=== PATIENT | female | born 1995 | race Caucasian/White ===

== ENCOUNTER 2017-01-24 23:01 | Day surgery (SDC) | payer BC ==
[2017-01-24] MEDS ORDERED: Sodium Chloride 0.9% 2.5 ML Syringe FLUSH PRN (23:36)
[2017-01-24] MEDS ORDERED: Sodium Chloride 0.9% 10 ML Syringe FLUSH PRN (23:36)
--- NOTE | 2017-01-24 23:39 | EDM.PDOC ---
ED HPI GENERAL MEDICAL PROBLEM - General Chief Complaint: Abdominal Pain Stated Complaint: ABDOMINAL PAIN Time Seen by Provider: 01/24/17 23:13 Source of Information: Reports: Patient History Limitations: Reports: No Limitations - History of Present Illness INITIAL COMMENTS - FREE TEXT/NARRATIVE: HISTORY AND PHYSICAL: History of present illness: [21-year-old female with no significant past medical history denies possibility of now complaining of 5 hour history of gradual onset of abdominal pain. She has no vaginal discharge or bleeding. It does hurt to move and when they hit bumps in the car that was painful. Pain is worse right lower quadrant. No vomiting or diarrhea. No fevers chills sweats or shaking chills. Patient has never had abdominal surgery and has no history of kidney stones] Review of systems: As per history of present illness and below otherwise all systems reviewed and negative. Past medical history: As per history of present illness and as reviewed below otherwise noncontributory. Surgical history: As per history of present illness and as reviewed below otherwise noncontributory. Social history: No reported history of drug or alcohol abuse. Family history: As per history of present illness and as reviewed below otherwise noncontributory. Physical exam: Well-appearing patient no acute distress clear lungs regular rhythm supple neck diffuse mild abdominal tenderness with focal tenderness right lower quadrant. Nondistended no mass or megaly no skin changes HEENT: Atraumatic, normocephalic, pupils reactive, negative for conjunctival pallor or scleral icterus, mucous membranes moist, throat clear, neck supple, nontender, trachea midline. Lungs: Clear to auscultation, breath sounds equal bilaterally, chest nontender. Heart: S1S2, regular, negative for clicks, rubs, or JVD. Abdomen: Soft, nondistended, nontender. Negative for masses or hepatosplenomegaly. Negative for costovertebral tenderness. Pelvis: Stable nontender. Genitourinary: Deferred. Rectal: Deferred. Extremities: Atraumatic, negative for cords or calf pain. Neurovascular unremarkable. Neuro: Awake, alert, oriented. Cranial nerves grossly unremarkable. Neuro unremarkable throughout. Exam nonfocal. Diagnostics: [CT with dilated appendix with questionable periappendiceal changes and stranding] Therapeutics: [IV fluids and analgesia] Impression: [] Plan: [Signs and symptoms consistent with intra-abdominal infection versus evolving enteritis. Labs with mildly elevated white blood cell count 11.19. Patient was tachycardic at 116. IV fluids initiated. status is negative. CTA returns with suspicion of appendicitis however results were not definitive. On clinical reevaluation patient clearly very tender at McBurney's point. Case discussed with Dr. Adeola zazueta surgery preparation operator. She is aware of history and findings and agrees with observation admission to her service for continued evaluation and surgical treatment.] Patient will be kept nothing by mouth. Dr. Trujillo requests Zosyn dosing IV. Definitive disposition and diagnosis as appropriate pending reevaluation and review of above. Bilateral Flank Pain Score (Numeric/FACES): 8 - Related Data Allergies Allergy/AdvReac Type Severity Reaction Status Date / Time erythromycin base Allergy Severe Rash Verified 01/24/17 23:16 [Erythromycin Base] azithromycin Allergy Rash Verified 01/24/17 23:16 codeine AdvReac Rash Verified 01/24/17 23:16 Home Meds: Home Meds . [No Known Home Meds] 12/23/13 [History] Past Medical History - Past Health History Medical/Surgical History: Denies Medical/Surgical History Social & Family History - Family History Family Medical History: Noncontributory - Tobacco Use Smoking Status *Q: Current Every Day Smoker Years of Tobacco use: 2 Packs/Tins Daily: 0.5 Second Hand Smoke Exposure: Yes - Caffeine Use Caffeine Use: Reports: Soda - Recreational Drug Use Recreational Drug Use: No ED ROS GENERAL - Review of Systems Review Of Systems: See Below (History of present illness) ED EXAM, GI/ABD - Physical Exam Exam: See Below (history of present illness) Course - Vital Signs Last Recorded V/S: Last Vital Signs Temp 36.5 C 01/25/17 01:25 Pulse 88 01/25/17 01:25 Resp 16 01/25/17 01:25 BP 113/72 01/25/17 01:25 Pulse Ox 98 01/25/17 01:25 - Orders/Labs/Meds Orders: Active Orders 24 hr Category Date Time Status Admission Status [Patient Status] [ADT] Stat ADT 01/25/17 01:50 Active Abdomen Pelvis w Cont [CT] Stat Exams 01/24/17 23:36 Taken Piperacillin/Tazobactam [Piperacil-Tazobact] 4.5 gm Med 01/25/17 01:51 Active Sodium Chloride 0.9% [Normal Saline] 100 ml IV ONETIME Sodium Chloride 0.9% [Normal Saline] 1,000 ml Med 01/25/17 01:44 Active IV STAT Sodium Chloride 0.9% [Normal Saline] 1,000 ml Med 01/25/17 01:44 Active IV STAT Peripheral IV Insertion Adult [OM.PC] Stat Oth 01/24/17 23:36 Ordered Medication Orders Sodium Chloride (Normal Saline) 1,000 mls @ 999 mls/hr IV STAT ONE Stop: 01/25/17 02:44 Last Admin: 01/25/17 01:50 Dose: 999 mls/hr Sodium Chloride (Normal Saline) 1,000 mls @ 999 mls/hr IV STAT ONE Stop: 01/25/17 02:44 Piperacillin Sod/Tazobactam (Sod 4.5 gm/ Sodium Chloride) 100 mls @ 100 mls/hr IV ONETIME ONE Stop: 01/25/17 02:50 Labs: Laboratory Tests 01/24/17 01/24/17 01/24/17 Range/Units 23:17 23:17 23:46 WBC 11.19 H (4.0-11.0) K/uL RBC 4.44 (4.30-5.90) M/uL Hgb 12.9 (12.0-16.0) g/dL Hct 37.8 (36.0-46.0) % MCV 85.1 (80.0-98.0) fL MCH 29.1 (27.0-32.0) pg MCHC 34.1 (31.0-37.0) g/dL RDW Std Deviation 41.3 (28.0-62.0) fl RDW Coeff of Wendy 13 (11.0-15.0) % Plt Count 275 (150-400) K/uL MPV 10.00 (7.40-12.00) fL Neut % (Auto) 54.9 (48.0-80.0) % Lymph % (Auto) 34.2 (16.0-40.0) % [place] % (Auto) 10.0 (0.0-15.0) % Eos % (Auto) 0.7 (0.0-7.0) % Baso % (Auto) 0.2 (0.0-1.5) % Neut # (Auto) 6.1 H (1.4-5.7) K/uL Lymph # (Auto) 3.8 H (0.6-2.4) K/uL [place] # (Auto) 1.1 H (0.0-0.8) K/uL Eos # (Auto) 0.1 (0.0-0.7) K/uL Baso # (Auto) 0.0 (0.0-0.1) K/uL Nucleated RBC % 0.0 /100WBC Nucleated RBCs # 0 K/uL Sodium (136-146) mmol/L Potassium (3.5-5.1) mmol/L Chloride (98-110) mmol/L Carbon Dioxide (21-31) mmol/L BUN (6.0-23.0) mg/dL Creatinine (0.6-1.5) mg/dL Est Cr Clr Drug Dosing mL/min Estimated GFR (MDRD) ml/min Glucose (60-110) mg/dL Calcium (8.8-10.8) mg/dL Total Bilirubin (0.1-1.5) mg/dL AST (5-40) IU/L ALT (8-54) IU/L Alkaline Phosphatase (40-150) Total Protein (6.0-8.0) g/dL Albumin (3.5-5.0) g/dL Globulin (2.0-3.5) g/dL Albumin/Globulin Ratio (1.3-2.8) Lipase (7-80) U/L Urine Color YELLOW Urine Appearance CLEAR Urine pH 6.5 (5.0-8.0) Ur Specific [place] 1.025 (1.001-1.035) Urine Protein NEGATIVE (NEGATIVE) mg/dL Urine Glucose (UA) NEGATIVE (NEGATIVE) mg/dL Urine Ketones NEGATIVE (NEGATIVE) mg/dL Urine Occult Blood NEGATIVE (NEGATIVE) Urine Nitrite NEGATIVE (NEGATIVE) Urine Bilirubin NEGATIVE (NEGATIVE) Urine Urobilinogen 0.2 (<2.0) EU/dL Ur Leukocyte Esterase NEGATIVE (NEGATIVE) Urine RBC 0-1 (0-2/HPF) Urine WBC 0-3 (0-5/HPF) Ur Epithelial Cells OCCASIONAL (NONE-FEW) Urine Bacteria RARE (NEGATIVE) Urine HCG, Qual NEGATIVE (NEGATIVE) 01/24/17 Range/Units 23:46 WBC (4.0-11.0) K/uL RBC (4.30-5.90) M/uL Hgb (12.0-16.0) g/dL Hct (36.0-46.0) % MCV (80.0-98.0) fL MCH (27.0-32.0) pg MCHC (31.0-37.0) g/dL RDW Std Deviation (28.0-62.0) fl RDW Coeff of Wendy (11.0-15.0) % Plt Count (150-400) K/uL MPV (7.40-12.00) fL Neut % (Auto) (48.0-80.0) % Lymph % (Auto) (16.0-40.0) % [place] % (Auto) (0.0-15.0) % Eos % (Auto) (0.0-7.0) % Baso % (Auto) (0.0-1.5) % Neut # (Auto) (1.4-5.7) K/uL Lymph # (Auto) (0.6-2.4) K/uL [place] # (Auto) (0.0-0.8) K/uL Eos # (Auto) (0.0-0.7) K/uL Baso # (Auto) (0.0-0.1) K/uL Nucleated RBC % /100WBC Nucleated RBCs # K/uL Sodium 140 (136-146) mmol/L Potassium 4.0 (3.5-5.1) mmol/L Chloride 108 (98-110) mmol/L Carbon Dioxide 24 (21-31) mmol/L BUN 5 L (6.0-23.0) mg/dL Creatinine 0.7 (0.6-1.5) mg/dL Est Cr Clr Drug Dosing 111.62 mL/min Estimated GFR (MDRD) > 60.0 ml/min Glucose 125 H (60-110) mg/dL Calcium 9.2 (8.8-10.8) mg/dL Total Bilirubin 0.2 (0.1-1.5) mg/dL AST 25 (5-40) IU/L ALT 21 (8-54) IU/L Alkaline Phosphatase 92 (40-150) Total Protein 6.6 (6.0-8.0) g/dL Albumin 3.7 (3.5-5.0) g/dL Globulin 2.9 (2.0-3.5) g/dL Albumin/Globulin Ratio 1.3 (1.3-2.8) Lipase 12 (7-80) U/L Urine Color Urine Appearance Urine pH (5.0-8.0) Ur Specific [place] (1.001-1.035) Urine Protein (NEGATIVE) mg/dL Urine Glucose (UA) (NEGATIVE) mg/dL Urine Ketones (NEGATIVE) mg/dL Urine Occult Blood (NEGATIVE) Urine Nitrite (NEGATIVE) Urine Bilirubin (NEGATIVE) Urine Urobilinogen (<2.0) EU/dL Ur Leukocyte Esterase (NEGATIVE) Urine RBC (0-2/HPF) Urine WBC (0-5/HPF) Ur Epithelial Cells (NONE-FEW) Urine Bacteria (NEGATIVE) Urine HCG, Qual (NEGATIVE) Meds: Medications Generic Name Dose Route Start Last Admin Trade Name Freq PRN Reason Stop Dose Admin Sodium Chloride 1,000 mls @ 999 mls/hr 01/25/17 01:44 01/25/17 01:50 Normal Saline IV 01/25/17 02:44 999 mls/hr STAT ONE Administration Sodium Chloride 1,000 mls @ 999 mls/hr 01/25/17 01:44 Normal Saline IV 01/25/17 02:44 STAT ONE Piperacillin Sod/Tazobactam 100 mls @ 100 mls/hr 01/25/17 01:51 Sod 4.5 gm/ Sodium Chloride IV 01/25/17 02:50 ONETIME ONE Discontinued Medications Generic Name Dose Route Start Last Admin Trade Name Maria Eugenia PRN Reason Stop Dose Admin Iopamidol 100 ml 01/24/17 23:56 01/24/17 23:57 Isovue Multipack-370 (76%) IVPUSH 01/24/17 23:57 100 ml ONETIME STA Administration Sodium Chloride 10 ml 01/24/17 23:36 01/25/17 01:51 Saline Flush FLUSH 10 ml ASDIRECTED PRN Administration Keep Vein Open Sodium Chloride 2.5 ml 01/24/17 23:36 01/25/17 01:51 Saline Flush FLUSH 2.5 ml ASDIRECTED PRN Administration Keep Vein Open Departure - Departure Time of Disposition: 02:04 Disposition: Refer to Observation Condition: Good Clinical Impression: Acute appendicitis, Abdominal pain, Leukocytosis, Tachycardia - Discharge Information Referrals: Rossy Moore, [employer] [Primary Care Provider] - - My Orders Last 24 Hours: My Active Orders 01/24/17 23:36 Abdomen Pelvis w Cont [CT] Stat Peripheral IV Insertion Adult [OM.PC] Stat 01/25/17 01:44 Sodium Chloride 0.9% [Normal Saline] 1,000 ml IV STAT Sodium Chloride 0.9% [Normal Saline] 1,000 ml IV STAT 01/25/17 01:50 Admission Status [Patient Status] [ADT] Stat 01/25/17 01:51 Piperacillin/Tazobactam [Piperacil-Tazobact] 4.5 gm Sodium Chloride 0.9% [ Normal Saline] 100 ml IV ONETIME - Assessment/Plan Last 24 Hours: My Active Orders 01/24/17 23:36 Abdomen Pelvis w Cont [CT] Stat Peripheral IV Insertion Adult [OM.PC] Stat 01/25/17 01:44 Sodium Chloride 0.9% [Normal Saline] 1,000 ml IV STAT Sodium Chloride 0.9% [Normal Saline] 1,000 ml IV STAT 01/25/17 01:50 Admission Status [Patient Status] [ADT] Stat 01/25/17 01:51 Piperacillin/Tazobactam [Piperacil-Tazobact] 4.5 gm Sodium Chloride 0.9% [ Normal Saline] 100 ml IV ONETIME
[2017-01-24] MEDS ORDERED: Iopamidol 755 MG/ML 500 ML Multipack Bottle IVPUSH STA (23:56)
[2017-01-25 00:42] LABS: CHLORIDE,CL 108 mmol/L (98-110); SODIUM,NA 140 mmol/L (136-146)
[2017-01-25] MEDS ORDERED: Sodium Chloride 0.9% 1,000 ML IV ONE (01:44)
[2017-01-25] MEDS: Sodium Chloride 0.9% 1,000 ML IV ONE ×2 (01:50→02:46)
[2017-01-25] MEDS ORDERED: Piperacillin/Tazobactam 4.5 GM in Sodium Chloride 0.9% 100 ML IV ONE (01:51)
[2017-01-25] MEDS ORDERED: Lactated Ringers 1,000 ML IV SCH (02:15)
[2017-01-25] MEDS: HYDROmorphone 2 MG/ML Syringe IVPUSH PRN ×3 (03:04→17:14)
[2017-01-25] MEDS ORDERED: Bupivacaine 0.5% 30 ML SDV ONE (07:05)
[2017-01-25] MEDS ORDERED: fentaNYL 100 MCG/2 ML SDV ONE (07:15)
[2017-01-25] MEDS ORDERED: Midazolam 1 MG/ML 2 ML SDV ONE (07:15)
[2017-01-25] MEDS ORDERED: Propofol 200 MG/20 ML SDV ONE (07:15)
[2017-01-25] MEDS ORDERED: Dexamethasone 4 MG/ML 5 ML MDV ONE (07:17)
[2017-01-25] MEDS ORDERED: Ketorolac 30 MG/ML SDV ONE (07:17)
[2017-01-25] MEDS ORDERED: Neostigmine Methylsulfate 1 MG/ML 5 ML Syringe ONE (07:17)
[2017-01-25] MEDS ORDERED: Rocuronium 10 MG/ML 10 ML Syringe ONE (07:17)
[2017-01-25] MEDS ORDERED: Ondansetron 4 MG/2 ML SDV ONE (07:17)
--- NOTE | 2017-01-25 07:30 | PCM.PREANE ---
Preanesthetic Assessment - Anesthesia/Transfusion/Family Hx Anesthesia History: Prior Anesthesia Without Reaction Family History of Anesthesia Reaction: No Transfusion History: No Prior Transfusion(s) - Review of Systems General: No Symptoms Pulmonary: No Symptoms Cardiovascular: No Symptoms Gastrointestinal: No Symptoms Neurological: No Symptoms Other: Reports: None - Physical Assessment NPO Status Date: 01/24/17 O2 Sat by Pulse Oximetry: 98 Respiratory Rate: 18 Vital Signs: Last Vital Signs Temp 36.4 C 01/25/17 02:25 Pulse 87 01/25/17 02:25 Resp 18 01/25/17 02:25 BP 112/73 01/25/17 02:25 Pulse Ox 98 01/25/17 02:25 Height: 1.63 m Weight: 81.964 kg ASA Class: 1 Mental Status: Alert & Oriented x3 Airway Class: Mallampati = 2 Dentition: Reports: Normal Dentition ROM/Head Extension: Full Lungs: Clear to Auscultation, Normal Respiratory Effort Cardiovascular: Regular Rate, Regular Rhythm - Lab Values: Laboratory Last Values WBC 11.19 K/uL (4.0-11.0) H 01/24/17 23:46 RBC 4.44 M/uL (4.30-5.90) 01/24/17 23:46 Hgb 12.9 g/dL (12.0-16.0) 01/24/17 23:46 Hct 37.8 % (36.0-46.0) 01/24/17 23:46 MCV 85.1 fL (80.0-98.0) 01/24/17 23:46 MCH 29.1 pg (27.0-32.0) 01/24/17 23:46 MCHC 34.1 g/dL (31.0-37.0) 01/24/17 23:46 RDW Std Deviation 41.3 fl (28.0-62.0) 01/24/17 23:46 RDW Coeff of Wendy 13 % (11.0-15.0) 01/24/17 23:46 Plt Count 275 K/uL (150-400) 01/24/17 23:46 MPV 10.00 fL (7.40-12.00) 01/24/17 23:46 Neut % (Auto) 54.9 % (48.0-80.0) 01/24/17 23:46 Lymph % (Auto) 34.2 % (16.0-40.0) 01/24/17 23:46 [place] % (Auto) 10.0 % (0.0-15.0) 01/24/17 23:46 Eos % (Auto) 0.7 % (0.0-7.0) 01/24/17 23:46 Baso % (Auto) 0.2 % (0.0-1.5) 01/24/17 23:46 Neut # (Auto) 6.1 K/uL (1.4-5.7) H 01/24/17 23:46 Lymph # (Auto) 3.8 K/uL (0.6-2.4) H 01/24/17 23:46 Keith # (Auto) 1.1 K/uL (0.0-0.8) H 01/24/17 23:46 Eos # (Auto) 0.1 K/uL (0.0-0.7) 01/24/17 23:46 Baso # (Auto) 0.0 K/uL (0.0-0.1) 01/24/17 23:46 Nucleated RBC % 0.0 /100WBC 01/24/17 23:46 Nucleated RBCs # 0 K/uL 01/24/17 23:46 Sodium 140 mmol/L (136-146) 01/24/17 23:46 Potassium 4.0 mmol/L (3.5-5.1) 01/24/17 23:46 Chloride 108 mmol/L (98-110) 01/24/17 23:46 Carbon Dioxide 24 mmol/L (21-31) 01/24/17 23:46 BUN 5 mg/dL (6.0-23.0) L 01/24/17 23:46 Creatinine 0.7 mg/dL (0.6-1.5) 01/24/17 23:46 Est Cr Clr Drug Dosing 111.62 mL/min 01/24/17 23:46 Estimated GFR (MDRD) > 60.0 ml/min 01/24/17 23:46 Glucose 125 mg/dL (60-110) H 01/24/17 23:46 Calcium 9.2 mg/dL (8.8-10.8) 01/24/17 23:46 Total Bilirubin 0.2 mg/dL (0.1-1.5) 01/24/17 23:46 AST 25 IU/L (5-40) 01/24/17 23:46 ALT 21 IU/L (8-54) 01/24/17 23:46 Alkaline Phosphatase 92 (40-150) 01/24/17 23:46 Total Protein 6.6 g/dL (6.0-8.0) 01/24/17 23:46 Albumin 3.7 g/dL (3.5-5.0) 01/24/17 23:46 Globulin 2.9 g/dL (2.0-3.5) 01/24/17 23:46 Albumin/Globulin Ratio 1.3 (1.3-2.8) 01/24/17 23:46 Lipase 12 U/L (7-80) 01/24/17 23:46 Urine Color YELLOW 01/24/17 23:17 Urine Appearance CLEAR 01/24/17 23: Urine pH 6.5 (5.0-8.0) 01/24/17 23:17 Ur Specific [place] 1.025 (1.001-1.035) 01/24/17 23:17 Urine Protein NEGATIVE mg/dL (NEGATIVE) 01/24/17 23:17 Urine Glucose (UA) NEGATIVE mg/dL (NEGATIVE) 01/24/17 23: Urine Ketones NEGATIVE mg/dL (NEGATIVE) 01/24/17 23:17 Urine Occult Blood NEGATIVE (NEGATIVE) 01/24/17 23:17 Urine Nitrite NEGATIVE (NEGATIVE) 01/24/17 23:17 Urine Bilirubin NEGATIVE (NEGATIVE) 01/24/17 23: Urine Urobilinogen 0.2 EU/dL (<2.0) 01/24/17 23:17 Ur Leukocyte Esterase NEGATIVE (NEGATIVE) 01/24/17 23:17 Urine RBC 0-1 (0-2/HPF) 01/24/17 23:17 Urine WBC 0-3 (0-5/HPF) 01/24/17 23:17 Ur Epithelial Cells OCCASIONAL (NONE-FEW) 01/24/17 23:17 Urine Bacteria RARE (NEGATIVE) 01/24/17 23: Urine HCG, Qual NEGATIVE (NEGATIVE) 01/24/17 23: - Allergies Allergies/Adverse Reactions: Allergies Allergy/AdvReac Type Severity Reaction Status Date / Time erythromycin base Allergy Severe Rash Verified 01/25/17 05:00 [Erythromycin Base] azithromycin Allergy Rash Verified 01/25/17 05:00 codeine AdvReac Rash Verified 01/25/17 05:00 - Anesthesia Plan Pre-Op Medication Ordered: None - Acknowledgements Anesthesia Type Planned: General Anesthesia Pt an Appropriate Candidate for the Planned Anesthesia: Yes Alternatives and Risks of Anesthesia Discussed w Pt/Guardian: Yes Pt/Guardian Understands and Agrees with Anesthesia Plan: Yes PreAnesthesia Questionnaire - Past Health History Medical/Surgical History: Denies Medical/Surgical History - SUBSTANCE USE Smoking Status *Q: Current Every Day Smoker Tobacco Use Within Last Twelve Months: Cigarettes Second Hand Smoke Exposure: Yes Recreational Drug Use History: No - HOME MEDS Home Medications: Home Meds . [No Known Home Meds] 12/23/13 [History] - CURRENT (IN HOUSE) MEDS Current Meds: Current Medications Hydromorphone HCl (Dilaudid) 0.2 mg IVPUSH Q1H PRN PRN Reason: Pain (severe 7-10) Last Admin: 01/25/17 03:04 Dose: 0.2 mg Lactated Ringer's (Ringers, Lactated) 1,000 mls @ 125 mls/hr IV ASDIRECTED KAM Last Admin: 01/25/17 04:08 Dose: 125 mls/hr Discontinued Medications Bupivacaine HCl (Marcaine 0.5%) Confirm Administered Dose 30 ml .ROUTE .STK-MED ONE Stop: 01/25/17 07:06 Dexamethasone (Dexamethasone) Confirm Administered Dose 20 mg .ROUTE .STK-MED ONE Stop: 01/25/17 07:18 Fentanyl (Sublimaze) Confirm Administered Dose 200 mcg .ROUTE .STK-MED ONE Stop: 01/25/17 07:16 Glycopyrrolate () Confirm Administered Dose 1 mg .ROUTE .STK-MED ONE Stop: 01/25/17 07:18 Sodium Chloride (Normal Saline) 1,000 mls @ 999 mls/hr IV STAT ONE Stop: 01/25/17 02:44 Last Admin: 01/25/17 02:46 Dose: 999 mls/hr Sodium Chloride (Normal Saline) 1,000 mls @ 999 mls/hr IV STAT ONE Stop: 01/25/17 02:44 Last Admin: 01/25/17 02:46 Dose: 999 mls/hr Piperacillin Sod/Tazobactam (Sod 4.5 gm/ Sodium Chloride) 100 mls @ 100 mls/hr IV ONETIME ONE Stop: 01/25/17 02:50 Last Admin: 01/25/17 02:01 Dose: 100 mls/hr Iopamidol (Isovue Multipack-370 (76%)) 100 ml IVPUSH ONETIME STA Stop: 01/24/17 23:57 Last Admin: 01/24/17 23:57 Dose: 100 ml Ketorolac Tromethamine (Toradol) Confirm Administered Dose 30 mg .ROUTE .STK- MED ONE Stop: 01/25/17 07:18 Lidocaine HCl (Xylocaine-Mpf 1%) Confirm Administered Dose 5 ml .ROUTE .STK-MED ONE Stop: 01/25/17 07:18 Midazolam HCl (Versed 1 Mg/Ml) Confirm Administered Dose 2 mg .ROUTE .STK-MED ONE Stop: 01/25/17 07:16 Neostigmine Methylsulfate (Neostigmine) Confirm Administered Dose 5 mg .ROUTE .STK-MED ONE Stop: 01/25/17 07:18 Ondansetron HCl (Zofran) Confirm Administered Dose 4 mg .ROUTE .STK-MED ONE Stop: 01/25/17 07:18 Propofol (Diprivan 20 Ml) Confirm Administered Dose 200 mg .ROUTE .STK-MED ONE Stop: 01/25/17 07:16 Rocuronium [place] (Zemuron) Confirm Administered Dose 100 mg .ROUTE .STK-MED ONE Stop: 01/25/17 07:18 Sodium Chloride (Saline Flush) 10 ml FLUSH ASDIRECTED PRN PRN Reason: Keep Vein Open Last Admin: 01/25/17 01:51 Dose: 10 ml Sodium Chloride (Saline Flush) 2.5 ml FLUSH ASDIRECTED PRN PRN Reason: Keep Vein Open Last Admin: 01/25/17 01:51 Dose: 2.5 ml
--- NOTE | 2017-01-25 07:39 | PCM.HP ---
H&P History of Present Illness - General Date of Service: 01/25/17 Admit Problem/Dx: Admission Diagnosis/Problem Admission Diagnosis/Problem Acute appendicitis Source of Information: Patient History Limitations: Reports: No Limitations - History of Present Illness Initial Comments - Free Text/Narative: Patient is a 21 year old female who presented with lower abdominal/back pain that started last evening. At first she thought they were period cramps, but the pain got worse. She presented to the ED. Her WBC was mildly elevated and a CT of the abdomen/pelvis showed a 9mm dilated appendix with keanu-appendicile stranding. She denies nausea, vomiting, fever chills. She recently got over a cold. Bilateral Flank Pain Score (Numeric/FACES): 8 - Related Data Allergies/Adverse Reactions: Allergies Allergy/AdvReac Type Severity Reaction Status Date / Time erythromycin base Allergy Severe Rash Verified 01/25/17 05:00 [Erythromycin Base] azithromycin Allergy Rash Verified 01/25/17 05:00 codeine AdvReac Rash Verified 01/25/17 05:00 Home Medications: Home Meds . [No Known Home Meds] 12/23/13 [History] Past Medical History - Past Health History Medical/Surgical History: Denies Medical/Surgical History Cardiovascular History: Reports: None Respiratory History: Reports: None Gastrointestinal History: Reports: None - Past Surgical History Head Surgeries/Procedures: Reports: None Social & Family History - Family History Family Medical History: Noncontributory - Tobacco Use Smoking Status *Q: Current Every Day Smoker Years of Tobacco use: 2 Packs/Tins Daily: 0.5 Second Hand Smoke Exposure: Yes - Caffeine Use Caffeine Use: Reports: Energy Drinks, Soda Other Caffeine Use: 1/day - Recreational Drug Use Recreational Drug Use: No H&P Review of Systems - Review of Systems: Review Of Systems: ROS reveals no pertinent complaints other than HPI. Exam - Exam Exam: See Below - Vital Signs Vital Signs: Last Vital Signs Temp 36.4 C 01/25/17 02:25 Pulse 87 01/25/17 02:25 Resp 18 01/25/17 07:30 BP 112/73 01/25/17 02:25 Pulse Ox 98 01/25/17 07:30 Weight: 81.964 kg - Exam General: Alert, Oriented Neck: Supple, Trachea Midline Lungs: Normal Respiratory Effort, Wheezing (mild along the left side) Cardiovascular: Regular Rate, Regular Rhythm GI/Abdominal Exam: Soft, No Distention, Other (Guarding and rebound along the right and left lower quadrant (R > L). No tenderness in upper quadrants. ) Extremities: Normal Inspection - Patient Data Lab Results Last 24 hrs: Laboratory Results - last 24 hr 01/24/17 01/24/17 01/24/17 Range/Units 23:17 23:17 23:46 WBC 11.19 H (4.0-11.0) K/uL RBC 4.44 (4.30-5.90) M/uL Hgb 12.9 (12.0-16.0) g/dL Hct 37.8 (36.0-46.0) % MCV 85.1 (80.0-98.0) fL MCH 29.1 (27.0-32.0) pg MCHC 34.1 (31.0-37.0) g/dL RDW Std Deviation 41.3 (28.0-62.0) fl RDW Coeff of Wendy 13 (11.0-15.0) % Plt Count 275 (150-400) K/uL MPV 10.00 (7.40-12.00) fL Neut % (Auto) 54.9 (48.0-80.0) % Lymph % (Auto) 34.2 (16.0-40.0) % [place] % (Auto) 10.0 (0.0-15.0) % Eos % (Auto) 0.7 (0.0-7.0) % Baso % (Auto) 0.2 (0.0-1.5) % Neut # (Auto) 6.1 H (1.4-5.7) K/uL Lymph # (Auto) 3.8 H (0.6-2.4) K/uL [place] # (Auto) 1.1 H (0.0-0.8) K/uL Eos # (Auto) 0.1 (0.0-0.7) K/uL Baso # (Auto) 0.0 (0.0-0.1) K/uL Nucleated RBC % 0.0 /100WBC Nucleated RBCs # 0 K/uL Sodium (136-146) mmol/L Potassium (3.5-5.1) mmol/L Chloride (98-110) mmol/L Carbon Dioxide (21-31) mmol/L BUN (6.0-23.0) mg/dL Creatinine (0.6-1.5) mg/dL Est Cr Clr Drug Dosing mL/min Estimated GFR (MDRD) ml/min Glucose (60-110) mg/dL Calcium (8.8-10.8) mg/dL Total Bilirubin (0.1-1.5) mg/dL AST (5-40) IU/L ALT (8-54) IU/L Alkaline Phosphatase (40-150) Total Protein (6.0-8.0) g/dL Albumin (3.5-5.0) g/dL Globulin (2.0-3.5) g/dL Albumin/Globulin Ratio (1.3-2.8) Lipase (7-80) U/L Urine Color YELLOW Urine Appearance CLEAR Urine pH 6.5 (5.0-8.0) Ur Specific [place] 1.025 (1.001-1.035) Urine Protein NEGATIVE (NEGATIVE) mg/dL Urine Glucose (UA) NEGATIVE (NEGATIVE) mg/dL Urine Ketones NEGATIVE (NEGATIVE) mg/dL Urine Occult Blood NEGATIVE (NEGATIVE) Urine Nitrite NEGATIVE (NEGATIVE) Urine Bilirubin NEGATIVE (NEGATIVE) Urine Urobilinogen 0.2 (<2.0) EU/dL Ur Leukocyte Esterase NEGATIVE (NEGATIVE) Urine RBC 0-1 (0-2/HPF) Urine WBC 0-3 (0-5/HPF) Ur Epithelial Cells OCCASIONAL (NONE-FEW) Urine Bacteria RARE (NEGATIVE) Urine HCG, Qual NEGATIVE (NEGATIVE) 01/24/17 Range/Units 23:46 WBC (4.0-11.0) K/uL RBC (4.30-5.90) M/uL Hgb (12.0-16.0) g/dL Hct (36.0-46.0) % MCV (80.0-98.0) fL MCH (27.0-32.0) pg MCHC (31.0-37.0) g/dL RDW Std Deviation (28.0-62.0) fl RDW Coeff of Wendy (11.0-15.0) % Plt Count (150-400) K/uL MPV (7.40-12.00) fL Neut % (Auto) (48.0-80.0) % Lymph % (Auto) (16.0-40.0) % [place] % (Auto) (0.0-15.0) % Eos % (Auto) (0.0-7.0) % Baso % (Auto) (0.0-1.5) % Neut # (Auto) (1.4-5.7) K/uL Lymph # (Auto) (0.6-2.4) K/uL [place] # (Auto) (0.0-0.8) K/uL Eos # (Auto) (0.0-0.7) K/uL Baso # (Auto) (0.0-0.1) K/uL Nucleated RBC % /100WBC Nucleated RBCs # K/uL Sodium 140 (136-146) mmol/L Potassium 4.0 (3.5-5.1) mmol/L Chloride 108 (98-110) mmol/L Carbon Dioxide 24 (21-31) mmol/L BUN 5 L (6.0-23.0) mg/dL Creatinine 0.7 (0.6-1.5) mg/dL Est Cr Clr Drug Dosing 111.62 mL/min Estimated GFR (MDRD) > 60.0 ml/min Glucose 125 H (60-110) mg/dL Calcium 9.2 (8.8-10.8) mg/dL Total Bilirubin 0.2 (0.1-1.5) mg/dL AST 25 (5-40) IU/L ALT 21 (8-54) IU/L Alkaline Phosphatase 92 (40-150) Total Protein 6.6 (6.0-8.0) g/dL Albumin 3.7 (3.5-5.0) g/dL Globulin 2.9 (2.0-3.5) g/dL Albumin/Globulin Ratio 1.3 (1.3-2.8) Lipase 12 (7-80) U/L Urine Color Urine Appearance Urine pH (5.0-8.0) Ur Specific [place] (1.001-1.035) Urine Protein (NEGATIVE) mg/dL Urine Glucose (UA) (NEGATIVE) mg/dL Urine Ketones (NEGATIVE) mg/dL Urine Occult Blood (NEGATIVE) Urine Nitrite (NEGATIVE) Urine Bilirubin (NEGATIVE) Urine Urobilinogen (<2.0) EU/dL Ur Leukocyte Esterase (NEGATIVE) Urine RBC (0-2/HPF) Urine WBC (0-5/HPF) Ur Epithelial Cells (NONE-FEW) Urine Bacteria (NEGATIVE) Urine HCG, Qual (NEGATIVE) Result Diagrams: 01/24/17 23:46 01/24/17 23:46 *Q Meaningful Use (ADM) - VTE *Q VTE Criteria *Q: - Stroke *Q Stroke Criteria *Q: - AMI *Q AMI Criteria *Q: - Problem List (1) Acute appendicitis SNOMED Code(s): 93334411 ICD Code: K35.80 - UNSPECIFIED ACUTE APPENDICITIS Status: Acute Current Visit: Yes Problem List Initiated/Reviewed/Updated: Yes Orders Last 24hrs: Active Orders 24 hr Category Date Time Status Patient Status [ADT] Routine ADT 01/25/17 02:09 Active Antiembolic Devices [RC] PER UNIT ROUTINE Care 01/25/17 02:11 Active Incentive Spirometry [RT Incentive Spirometry] [RC] Care 01/25/17 02:15 Active ASDIRECTED Oxygen Therapy [RC] PRN Care 01/25/17 02:13 Active Up ad Alisha [RC] ASDIRECTED Care 01/25/17 02:11 Active Verify Patient Consent Obtain [RC] ASDIRECTED Care 01/25/17 02:09 Active Vital Signs [RC] PER UNIT ROUTINE Care 01/25/17 02:13 Active Nothing Per Oral Diet [DIET] Diet 01/25/17 Breakfast Active Abdomen Pelvis w Cont [CT] Stat Exams 01/24/17 23:36 Taken FLU Vacc [id number] 36mos UP/PF [Fluarix Quad 6485-0209] Med 01/25/17 09:00 Once 60 mcg IM .ONCE ONE HYDROmorphone [Dilaudid] Med 01/25/17 02:11 Active 0.2 mg IVPUSH Q1H PRN Lactated Ringers [Ringers, Lactated] 1,000 ml Med 01/25/17 02:15 Active IV ASDIRECTED Peripheral IV Insertion Adult [OM.PC] Stat Oth 01/24/17 23:36 Ordered Sequential Compression Device [OM.PC] Routine Oth 01/25/17 02:09 Ordered Medication Orders Hydromorphone HCl (Dilaudid) 0.2 mg IVPUSH Q1H PRN PRN Reason: Pain (severe 7-10) Last Admin: 01/25/17 03:04 Dose: 0.2 mg Lactated Ringer's (Ringers, Lactated) 1,000 mls @ 125 mls/hr IV ASDIRECTED [facility] Last Admin: 01/25/17 04:08 Dose: 125 mls/hr Assessment/Plan Comment:: Patient was admited to the floor, kept NPO, given IV antibiotics and resucitated. I met her this morning and discussed the pathophysiology of acute appendicitis. The treatment for this is an appendectomy. We discussed the laparoscopic and open procedure. I will attempt this laparoscopically and convert to open if I encounter difficulties. The patient and I discussed the keanu-operative course and operative risks including bleeding infection or damage to surrounding structures. She verbalized understanding and wishes to proceed.
[2017-01-25] MEDS ORDERED: FLU Vacc QS 2017-18 (36mos UP)/PF 60 MCG/0.5 ML Syringe IM ONE (09:00)
--- NOTE | 2017-01-25 09:09 | PCM.OPNOTE ---
- General Post-Op/Procedure Note Date of Surgery/Procedure: 01/25/17 Operative Procedure(s): Laparoscopic appendectomy Findings: Retrocecal acutely inflamed and dilated appearing appendix Pre Op Diagnosis: Acute appendicitis Post-Op Diagnosis: Acute appendicitis Anesthesia Technique: MAC Primary Surgeon: Adeola Trujillo Fluid Replacement, Intraop: 900 Output, Urine Amount: 290 Condition: Good Free Text/Narrative:: Intake & Output 01/24/17 01/25/17 01/25/17 22:59 06:59 14:59 Intake Total 1085 Output Total 400 Balance 685
[2017-01-25] MEDS: fentaNYL 100 MCG/2 ML SDV IVPUSH PRN ×2 (09:25→09:31)
--- NOTE | 2017-01-25 09:45 | PCM.POSTAN ---
POST ANESTHESIA ASSESSMENT - MENTAL STATUS Mental Status: Alert, Oriented - RESPIRATORY Respiratory Status: Respiratory Rate WNL, Airway Patent, O2 Saturation Stable - CARDIOVASCULAR CV Status: Pulse Rate WNL, Blood Pressure Stable - GASTROINTESTINAL GI Status: No Symptoms - POST OP HYDRATION Hydration Status: Adequate & Stable
[2017-01-25] MEDS: Acetaminophen/oxyCODONE 325-5 MG Tab PO PRN ×3 (10:34→21:20)
--- NOTE | 2017-01-25 15:47 | CT ---
EXAM DATE: 01/25/17 PATIENT'S AGE: 21 Patient: JULIANNA DELANEY Facility: [place], [place] Site . Site : 1995 Study: CT Abdomen/Pelvis [id number] 1:09:52 AM Ordering Physician: YOKATSA ELDRIDGE Final Report: INDICATION: pain TECHNIQUE: CT abdomen and pelvis acquired with IV contrast. COMPARISON: None FINDINGS: Lower chest: Unremarkable. Liver: Mild diffuse fatty infiltration liver. Spleen: Unremarkable. Pancreas: Unremarkable. Gallbladder and bile ducts: Contracted. Kidneys: Unremarkable. Adrenal glands: Unremarkable. GI tract: Unremarkable. Focal dilatation along the mid appendix measuring up to 9 mm with questionable adjacent periappendiceal stranding. Vascular structures: Negative. No sign of aneurysm. Lymph nodes: Unremarkable. Miscellaneous: Unremarkable. No free air or significant free fluid. Pelvic Organs: Unremarkable. Bones: Unremarkable for age. IMPRESSION: Focal dilatation along the mid appendix measuring up to 9 mm with questionable adjacent periappendiceal stranding. Findings are equivocal for acute appendicitis. Dictated by Jonny Avila MD @ 01/25/2017 1:22:33 AM Dictated by: Jonny Avila MD @ 01/25/2017 01:23:12 (Electronic Signature) Report Signed by Proxy. [facility]
--- NOTE | 2017-01-25 16:41 | OR ---
SURGEON: DMITRIY PAREKH MD DATE OF PROCEDURE: 01/25/2017 PREOPERATIVE DIAGNOSIS: Appendicitis. POSTOPERATIVE DIAGNOSIS: Acute nonperforated appendicitis. PROCEDURE PERFORMED: Laparoscopic appendectomy. ANESTHESIA: General endotracheal anesthesia. FLUIDS: 900 mL crystalloid. URINE OUTPUT: 290 mL. ESTIMATED BLOOD LOSS: 5 mL. FINDINGS: Retrocecal appendix grossly inflamed and enlarged but not perforated. COMPLICATIONS: None. INDICATIONS: The patient is a 21-year-old female, who developed lower abdominal and back pain last evening. She thought this was menstrual cramps, however, the pain became more severe and she presented to the emergency room. Workup in the ER revealed a mild leukocytosis and CT of the abdomen and pelvis showed a dilated appendix with periappendiceal stranding. She was admitted to the hospital, kept n.p.o., given IV fluids, and started on IV antibiotics. The patient and I discussed the finding of acute appendicitis and the treatment which is appendectomy. I explained the laparoscopic as well as open appendectomy procedure. I discussed the risks, including bleeding, infection, or damage to surrounding structures. Should I be unable to perform this successfully laparoscopically, I will convert to open. The patient verbalized understanding and wishes to proceed. PROCEDURE IN DETAIL: The patient was brought to the OR and placed on the operating room table in supine position. A time-out was completed verifying the patient's name, age, date of , allergies, and procedure to be performed. General endotracheal anesthesia was induced. The left arm was tucked at the patient's side and a Franz catheter placed. The abdomen was prepped and draped in the usual standard fashion. An area of approximately 2 fingerbreadth below the left subcostal margin and in the midclavicular line was anesthetized with 0.5% Marcaine plain. An 11 blade was used to make a 1 cm incision over this area. Using a 5 mm optical trocar and 0 degree 5 mm scope, I obtained access to the abdomen through this incision. All layers of the abdominal wall were visualized upon entry. The abdomen was then insufflated to a pressure of 12 mmHg. I inserted a 30- degree 5-mm scope into the abdomen and inspected the left upper quadrant to ensure that there was no injury from my initial trocar placement. None was noted. A 5-mm trocar was placed under direct visualization just left of the umbilicus and a 12-mm trocar placed in the left lower quadrant. The patient was placed into Trendelenburg position and airplaned slightly to the left. Upon initial assessment in the right lower quadrant, no appendix was noted. I gently rolled the ascending colon medially and encountered a dilated appendix. I grasped the tip of the appendix with an atraumatic grasper and elevated it into my working field. It appeared to take a tortuous course down to the base of the cecum. A harmonic scalpel was brought and I took down the appendiceal mesentery close to the appendix working from distally to proximally. Given its tortuous course, I used blunt dissection and hook cautery to ensure a safe dissection. Once the appendiceal mesentery had been taken all the way down to the level of the base of the appendix, I reinspected my appendiceal mesentery and found to be hemostatic. I followed the tenia of the cecum down to the base of the appendix to ensure that I had adequately mobilized my appendix. Endoscopic stapler was brought into the field and a 45-mm staple load was used to transect and divide the appendix at its base. The appendix was then placed in an EndoCatch bag and brought through the 12 mm port site. The 12 mm port was reinserted and I reinspected my area of dissection. The posterior wall of the ascending colon and cecum appeared to be intact with no evidence of any cautery damage. The staple line itself was intact. There was no fluid or purulent material within this area, so I did not irrigate. The 12-mm port site was then closed with 0 Vicryl suture using a Juan-Shauna device. The remainder of the ports were removed under direct visualization and the abdomen allowed to desufflate. The patient was flattened out and I closed the 12-mm port site with an interrupted 3- 0 Vicryl in the subcutaneous layer and closed the skin with a running 4-0 Monocryl suture. The 5-mm trocar sites were closed with interrupted 4-0 Monocryl. Steri-Strips and sterile dressings were applied. The patient tolerated the procedure well and was taken to PACU in stable condition. FAUSTO ZIEGLER /[id number]
[2017-01-26] MEDS: HYDROmorphone 2 MG/ML Syringe IVPUSH PRN (00:45)
--- NOTE | 2017-01-26 02:41 | PCM48HPAN ---
Post Anesthesia Note - EVALUATION WITHIN 48HRS OF ANESTHETIC Vital Signs in Normal Range: Yes Patient Participated in Evaluation: Yes Respiratory Function Stable: Yes Airway Patent: Yes Cardiovascular Function Stable: Yes Hydration Status Stable: Yes Pain Control Satisfactory: Yes Nausea and Vomiting Control Satisfactory: Yes Mental Status Recovered: Yes
[2017-01-26] MEDS: Acetaminophen/oxyCODONE 325-5 MG Tab PO PRN ×2 (04:43→10:17)
[2017-01-26] MEDS ORDERED: Ketorolac 10 MG Tab PO SCH (07:30)
--- NOTE | 2017-01-26 07:36 | PCM.PN ---
- General Info Date of Service: 01/26/17 Admission Dx/Problem (Free Text): Appendicitis Functional Status: Reports: Tolerating Diet, Ambulating, Urinating, Incentive Spirometry, Other (Patient feels her pain is not controlled on her current medications ) - Review of Systems General: Reports: No Symptoms Gastrointestinal: Reports: Abdominal Pain (along left abdominal incisions ) - Patient Data Vitals - Most Recent: Last Vital Signs Temp 36.8 C 01/26/17 04:58 Pulse 78 01/26/17 04:58 Resp 18 01/26/17 04:58 BP 107/62 01/26/17 04:58 Pulse Ox 92 L 01/26/17 04:58 Weight - Most Recent: 81.964 kg I&O - Last 24 Hours: Intake & Output 01/25/17 01/26/17 01/26/17 22:59 06:59 14:59 Intake Total 650 800 Output Total 950 2000 Balance -300 -1200 Med Orders - Current: Current Medications Hydromorphone HCl (Dilaudid) 0.2 mg IVPUSH Q1H PRN PRN Reason: Pain (severe 7-10) Last Admin: 01/26/17 00:45 Dose: 0.2 mg Ketorolac Tromethamine (Toradol) 10 mg PO Q6H KAM Stop: 01/31/17 07:31 Oxycodone/Acetaminophen (Percocet 325-5 Mg) 2 tab PO Q4H PRN PRN Reason: Abdominal Pain Last Admin: 01/26/17 04:43 Dose: 2 tab Discontinued Medications Bupivacaine HCl (Marcaine 0.5%) Confirm Administered Dose 30 ml .ROUTE .STK-MED ONE Stop: 01/25/17 07:06 Dexamethasone (Dexamethasone) Confirm Administered Dose 20 mg .ROUTE .STK-MED ONE Stop: 01/25/17 07:18 Fentanyl (Sublimaze) Confirm Administered Dose 200 mcg .ROUTE .STK-MED ONE Stop: 01/25/17 07:16 Fentanyl (Sublimaze) 50 mcg IVPUSH Q5M PRN PRN Reason: Pain Last Admin: 01/25/17 09:31 Dose: 50 mcg Glycopyrrolate () Confirm Administered Dose 1 mg .ROUTE .STK-MED ONE Stop: 01/25/17 07:18 Sodium Chloride (Normal Saline) 1,000 mls @ 999 mls/hr IV STAT ONE Stop: 01/25/17 02:44 Last Admin: 01/25/17 02:46 Dose: 999 mls/hr Sodium Chloride (Normal Saline) 1,000 mls @ 999 mls/hr IV STAT ONE Stop: 01/25/17 02:44 Last Admin: 01/25/17 02:46 Dose: 999 mls/hr Piperacillin Sod/Tazobactam (Sod 4.5 gm/ Sodium Chloride) 100 mls @ 100 mls/hr IV ONETIME ONE Stop: 01/25/17 02:50 Last Admin: 01/25/17 02:01 Dose: 100 mls/hr Lactated Ringer's (Ringers, Lactated) 1,000 mls @ 125 mls/hr IV ASDIRECTED KAM Last Admin: 01/25/17 04:08 Dose: 125 mls/hr Iopamidol (Isovue Multipack-370 (76%)) 100 ml IVPUSH ONETIME STA Stop: 01/24/17 23:57 Last Admin: 01/24/17 23:57 Dose: 100 ml Ketorolac Tromethamine (Toradol) Confirm Administered Dose 30 mg .ROUTE .STK- MED ONE Stop: 01/25/17 07:18 Lidocaine HCl (Xylocaine-Mpf 1%) Confirm Administered Dose 5 ml .ROUTE .STK-MED ONE Stop: 01/25/17 07:18 Midazolam HCl (Versed 1 Mg/Ml) Confirm Administered Dose 2 mg .ROUTE .STK-MED ONE Stop: 01/25/17 07:16 Neostigmine Methylsulfate (Neostigmine) Confirm Administered Dose 5 mg .ROUTE .STK-MED ONE Stop: 01/25/17 07:18 Ondansetron HCl (Zofran) Confirm Administered Dose 4 mg .ROUTE .STK-MED ONE Stop: 01/25/17 07:18 Propofol (Diprivan 20 Ml) Confirm Administered Dose 200 mg .ROUTE .STK-MED ONE Stop: 01/25/17 07:16 Rocuronium [place] (Zemuron) Confirm Administered Dose 100 mg .ROUTE .STK-MED ONE Stop: 01/25/17 07:18 Sodium Chloride (Saline Flush) 10 ml FLUSH ASDIRECTED PRN PRN Reason: Keep Vein Open Last Admin: 01/25/17 01:51 Dose: 10 ml Sodium Chloride (Saline Flush) 2.5 ml FLUSH ASDIRECTED PRN PRN Reason: Keep Vein Open Last Admin: 01/25/17 01:51 Dose: 2.5 ml - Exam Quality Assessment: Supplemental Oxygen General: Alert, Oriented Lungs: Normal Respiratory Effort Cardiovascular: Regular Rate GI/Abdominal Exam: Soft, No Distention, Tender (along incisions) - Problem List & Annotations (1) Acute appendicitis SNOMED Code(s): 18749085 Code(s): K35.80 - UNSPECIFIED ACUTE APPENDICITIS Status: Acute Current Visit: Yes - Problem List Review Problem List Initiated/Reviewed/Updated: Yes - My Orders Last 24 Hours: My Active Orders 01/25/17 09:11 Ready for Discharge [RC] PER UNIT ROUTINE 01/25/17 09:16 Acetaminophen/oxyCODONE [Percocet 325-5 MG] 2 tab PO Q4H PRN 01/25/17 17:14 Admission Status [Patient Status] [ADT] Routine 01/25/17 Lunch Regular Diet [DIET] 01/26/17 07:30 Ketorolac [Toradol] 10 mg PO Q6H - Plan Plan:: Patient is doing well overall. She has pain along her incisions. I talked about reasonable goals for pain control. I will add on Toradol po q6hr for better pain control. If she has better control then I will discharge her at noon.
[2017-01-26 09:06] VITALS: BP 123/62
[2017-01-26] MEDS ORDERED: Polyethylene Glycol 3350 Powder 17 GM Packet PO ONE (10:11)
--- NOTE | 2017-01-27 19:14 | PCM.DCSUM1 ---
Discharge Summary - Hospital Course Free Text/Narrative:: Patient was admitted with acute appendicitis. Her appendix was not perforated. It was able to be removed laparoscopically. Post operatively her pain was marginally managed on narcotics. I added toradol and her pain was much better managed. Her vitals remained stable. She tolerated po intake and voided. She was discharged home. - Discharge Data Discharge Date: 01/26/17 Discharge Disposition: Home, Self-Care 01 Condition: Good - Discharge Diagnosis/Problem(s) (1) Acute appendicitis SNOMED Code(s): 43587602 ICD Code: K35.80 - UNSPECIFIED ACUTE APPENDICITIS Status: Acute - Patient Summary/Data Operative Procedure(s) Performed: Laparoscopic appendectomy - Patient Instructions Diet: Regular Diet as Tolerated Activity: No Lifting Over 20 Pounds, Rest and Relax Today Driving: Do Not Drive Showering/Bathing: No Showering, No Tub Bathing/Swimming Wound/Incision Care: Keep Operative Site/Wound Site Clean and Dry Notify Provider of: Fever, Increased Pain, Swelling and Redness, Drainage, Nausea and/or Vomiting - Discharge Plan Prescriptions/Med Rec: Acetaminophen/oxyCODONE [Percocet 325-5 MG] 1 - 2 tab PO Q4H PRN #40 tablet PRN Reason: Pain Ketorolac [Toradol] 10 mg PO Q6H PRN #30 tablet PRN Reason: Pain Polyethylene Glycol 3350 [MiraLAX] 17 gm PO DAILY 14 Days #1 packet Home Medications: Home Meds Acetaminophen/oxyCODONE [Percocet 325-5 MG] 1 - 2 tab PO Q4H PRN #40 tablet 07/10 [Rx] Ketorolac [Toradol] 10 mg PO Q6H PRN #30 tablet 01/26/17 [Rx] Polyethylene Glycol 3350 [MiraLAX] 17 gm PO DAILY 14 Days #1 packet 01/26/17 [Rx ] Patient Handouts: Acetaminophen; Oxycodone tablets, Laparoscopic Appendectomy, Adult, Care After, [id number], Ketorolac tablets, Polyethylene Glycol powder Referrals: Adeola Trujillo MD [Physician] - 02/08/17 1:00 pm - General Info Date of Service: 01/27/17 Functional Status: Reports: Pain Controlled, Tolerating Diet, Ambulating, Urinating - Review of Systems General: Reports: No Symptoms Gastrointestinal: Reports: No Symptoms - Patient Data Vitals - Most Recent: Last Vital Signs Temp 36.4 C 01/26/17 08:00 Pulse 97 01/26/17 08:00 Resp 18 01/26/17 08:00 BP 123/62 01/26/17 08:00 Pulse Ox 94 L 01/26/17 08:00 Weight - Most Recent: 81.964 kg Med Orders - Current: Current Medications Discontinued Medications Bupivacaine HCl (Marcaine 0.5%) Confirm Administered Dose 30 ml .ROUTE .STK-MED ONE Stop: 01/25/17 07:06 Dexamethasone (Dexamethasone) Confirm Administered Dose 20 mg .ROUTE .STK-MED ONE Stop: 01/25/17 07:18 Fentanyl (Sublimaze) Confirm Administered Dose 200 mcg .ROUTE .STK-MED ONE Stop: 01/25/17 07:16 Fentanyl (Sublimaze) 50 mcg IVPUSH Q5M PRN PRN Reason: Pain Last Admin: 01/25/17 09:31 Dose: 50 mcg Glycopyrrolate () Confirm Administered Dose 1 mg .ROUTE .STK-MED ONE Stop: 01/25/17 07:18 Hydromorphone HCl (Dilaudid) 0.2 mg IVPUSH Q1H PRN PRN Reason: Pain (severe 7-10) Last Admin: 01/26/17 00:45 Dose: 0.2 mg Sodium Chloride (Normal Saline) 1,000 mls @ 999 mls/hr IV STAT ONE Stop: 01/25/17 02:44 Last Admin: 01/25/17 02:46 Dose: 999 mls/hr Sodium Chloride (Normal Saline) 1,000 mls @ 999 mls/hr IV STAT ONE Stop: 01/25/17 02:44 Last Admin: 01/25/17 02:46 Dose: 999 mls/hr Piperacillin Sod/Tazobactam (Sod 4.5 gm/ Sodium Chloride) 100 mls @ 100 mls/hr IV ONETIME ONE Stop: 01/25/17 02:50 Last Admin: 01/25/17 02:01 Dose: 100 mls/hr Lactated Ringer's (Ringers, Lactated) 1,000 mls @ 125 mls/hr IV ASDIRECTED KAM Last Admin: 01/25/17 04:08 Dose: 125 mls/hr Iopamidol (Isovue Multipack-370 (76%)) 100 ml IVPUSH ONETIME STA Stop: 01/24/17 23:57 Last Admin: 01/24/17 23:57 Dose: 100 ml Ketorolac Tromethamine (Toradol) Confirm Administered Dose 30 mg .ROUTE .STK- MED ONE Stop: 01/25/17 07:18 Ketorolac Tromethamine (Toradol) 10 mg PO Q6H KAM Stop: 01/31/17 07:31 Last Admin: 01/26/17 08:07 Dose: 10 mg Lidocaine HCl (Xylocaine-Mpf 1%) Confirm Administered Dose 5 ml .ROUTE .STK-MED ONE Stop: 01/25/17 07:18 Midazolam HCl (Versed 1 Mg/Ml) Confirm Administered Dose 2 mg .ROUTE .STK-MED ONE Stop: 01/25/17 07:16 Neostigmine Methylsulfate (Neostigmine) Confirm Administered Dose 5 mg .ROUTE .STK-MED ONE Stop: 01/25/17 07:18 Ondansetron HCl (Zofran) Confirm Administered Dose 4 mg .ROUTE .STK-MED ONE Stop: 01/25/17 07:18 Oxycodone/Acetaminophen (Percocet 325-5 Mg) 2 tab PO Q4H PRN PRN Reason: Abdominal Pain Last Admin: 01/26/17 10:17 Dose: 2 tab Polyethylene Glycol (Miralax) 17 gm PO ONETIME ONE Stop: 01/26/17 10:12 Last Admin: 01/26/17 10:45 Dose: 17 gm Propofol (Diprivan 20 Ml) Confirm Administered Dose 200 mg .ROUTE .STK-MED ONE Stop: 01/25/17 07:16 Rocuronium [place] (Zemuron) Confirm Administered Dose 100 mg .ROUTE .STK-MED ONE Stop: 01/25/17 07:18 Sodium Chloride (Saline Flush) 10 ml FLUSH ASDIRECTED PRN PRN Reason: Keep Vein Open Last Admin: 01/25/17 01:51 Dose: 10 ml Sodium Chloride (Saline Flush) 2.5 ml FLUSH ASDIRECTED PRN PRN Reason: Keep Vein Open Last Admin: 01/25/17 01:51 Dose: 2.5 ml - Exam General: Reports: Alert, Oriented Lungs: Reports: Normal Respiratory Effort Cardiovascular: Reports: Regular Rate GI/Abdominal Exam: Soft, Non-Tender, No Distention *Q Meaningful Use (DIS) - VTE *Q VTE Criteria *Q: - Stroke *Q Stroke Criteria *Q: - AMI *Q AMI Criteria *Q:
== END 2017-01-26 11:55 | disposition home or self-care (01) ==
LOC: MW.ED 23:01 → MW.SDS 01-25 02:09 → MW.MS 01-25 02:12 → MW.SDS 01-26 11:55
PROVIDERS: ATTEND Surgery
DX: K35.80 Unspecified acute appendicitis (principal); Z88.1 Allergy status to other antibiotic agents; Z88.8 Allergy status to other drugs, medicaments and biological substances; Z79.899 Other long term (current) drug therapy; F17.210 Nicotine dependence, cigarettes, uncomplicated
CPT/HCPCS: 36415; 44970; 74177; 80053; 81001; 81025; 83690; 85025; 88304; 96374; 99285; A9270; J1100; J1170; J1885; J2250; J2405; J2543; J3010; J7030; J7040; J7120; Q9967; 00840; 99283; J2704

== ENCOUNTER 2017-01-29 23:23 | Emergency (ER) | payer BC ==
[2017-01-29] MEDS ORDERED: Ondansetron 4 MG/2 ML SDV IVPUSH ONE (23:33)
[2017-01-29] MEDS ORDERED: Sodium Chloride 0.9% 1,000 ML IV ONE (23:33)
--- NOTE | 2017-01-29 23:35 | EDM.PDOC ---
ED HPI GENERAL MEDICAL PROBLEM - General Chief Complaint: Abdominal Pain Stated Complaint: STOMACH PAIN/HAD SURGERY Time Seen by Provider: 01/29/17 23:34 Source of Information: Reports: Patient - History of Present Illness INITIAL COMMENTS - FREE TEXT/NARRATIVE: HISTORY AND PHYSICAL: History of present illness: []Patient presents with postop pain she is day 4 post appendectomy complaining of significant abdominal pain she does not appear in any distress no fever nausea vomiting chills sweats no chest pain shortness breath headache dizziness or palpitation no bowel or urine symptoms Review of systems: As per history of present illness and below otherwise all systems reviewed and negative. Past medical history: As per history of present illness and as reviewed below otherwise noncontributory. Surgical history: As per history of present illness and as reviewed below otherwise noncontributory. Social history: No reported history of drug or alcohol abuse. Family history: As per history of present illness and as reviewed below otherwise noncontributory. Physical exam: HEENT: Atraumatic, normocephalic, pupils reactive, negative for conjunctival pallor or scleral icterus, mucous membranes moist, throat clear, neck supple, nontender, trachea midline. Lungs: Clear to auscultation, breath sounds equal bilaterally, chest nontender. Heart: S1S2, regular, negative for clicks, rubs, or JVD. Abdomen: Soft, nondistended, nontender. Negative for masses or hepatosplenomegaly. Negative for costovertebral tenderness. Pelvis: Stable nontender. Genitourinary: Deferred. Rectal: Deferred. Extremities: Atraumatic, negative for cords or calf pain. Neurovascular unremarkable. Neuro: Awake, alert, oriented. Cranial nerves II through XII unremarkable. Cerebellum unremarkable. Motor and sensory unremarkable throughout. Exam nonfocal. Diagnostics: []Lab as below CT abdomen pelvis with contrast Therapeutics: []Normal saline bolus Zofran 8 mg IV She has remained comfortable without any pain medication here CT scan is negative and vitals are completely stable she'll be discharged home she can follow-up with Dr. Kumar on Wednesday or as needed she is scheduled for follow-up on the all provided phone number so she can call and maybe scoot this if needed Bactrim double strength by mouth twice a day #20 no refill provided for prophylactic treatment UTI Impression: []Postop day 4 laparoscopic appendectomy Postop pain Positive leukocyte esterase on urine Definitive disposition and diagnosis as appropriate pending reevaluation and review of above. Left Lower Abdominal Pain Score (Numeric/FACES): 7 - Related Data Allergies Allergy/AdvReac Type Severity Reaction Status Date / Time erythromycin base Allergy Severe Rash Verified 01/25/17 05:00 [Erythromycin Base] azithromycin Allergy Rash Verified 01/25/17 05:00 codeine AdvReac Rash Verified 01/25/17 05:00 Home Meds: Home Meds Acetaminophen/oxyCODONE [Percocet 325-5 MG] 1 - 2 tab PO Q4H PRN #40 tablet 07/10 [Rx] Ketorolac [Toradol] 10 mg PO Q6H PRN #30 tablet 01/26/17 [Rx] Polyethylene Glycol 3350 [MiraLAX] 17 gm PO DAILY 14 Days #1 packet 01/26/17 [Rx ] Past Medical History - Past Health History Medical/Surgical History: Denies Medical/Surgical History Cardiovascular History: Reports: None Respiratory History: Reports: None Gastrointestinal History: Reports: None - Past Surgical History Head Surgeries/Procedures: Reports: None Social & Family History - Family History Family Medical History: Noncontributory - Tobacco Use Smoking Status *Q: Current Every Day Smoker Years of Tobacco use: 2 Packs/Tins Daily: 0.5 Second Hand Smoke Exposure: Yes - Caffeine Use Caffeine Use: Reports: Energy Drinks, Soda Other Caffeine Use: 1/day - Recreational Drug Use Recreational Drug Use: No ED ROS GENERAL - Review of Systems Review Of Systems: ROS reveals no pertinent complaints other than HPI. ED EXAM, GENERAL - Physical Exam Exam: See Below Course - Vital Signs Last Recorded V/S: Last Vital Signs Temp 36.6 C 01/29/17 23:25 Pulse 100 01/29/17 23:25 Resp 20 01/29/17 23:25 BP 126/84 01/29/17 23:25 Pulse Ox 99 01/29/17 23:25 - Orders/Labs/Meds Orders: Active Orders 24 hr Category Date Time Status Abdomen Pelvis w Cont [CT] Stat Exams 01/30/17 00:33 Taken CULTURE URINE [RM] Stat Lab 01/30/17 01:20 Received Labs: Laboratory Tests 01/29/17 01/29/17 01/29/17 Range/Units 23:40 23:40 23:40 WBC 14.57 H (4.0-11.0) K/uL RBC 4.68 (4.30-5.90) M/uL Hgb 13.7 (12.0-16.0) g/dL Hct 39.1 (36.0-46.0) % MCV 83.5 (80.0-98.0) fL MCH 29.3 (27.0-32.0) pg MCHC 35.0 (31.0-37.0) g/dL RDW Std Deviation 39.3 (28.0-62.0) fl RDW Coeff of Wendy 13 (11.0-15.0) % Plt Count 284 (150-400) K/uL MPV 9.80 (7.40-12.00) fL Neut % (Auto) 66.4 (48.0-80.0) % Lymph % (Auto) 25.0 (16.0-40.0) % [place] % (Auto) 7.5 (0.0-15.0) % Eos % (Auto) 1.0 (0.0-7.0) % Baso % (Auto) 0.1 (0.0-1.5) % Neut # (Auto) 9.7 H (1.4-5.7) K/uL Lymph # (Auto) 3.6 H (0.6-2.4) K/uL [place] # (Auto) 1.1 H (0.0-0.8) K/uL Eos # (Auto) 0.1 (0.0-0.7) K/uL Baso # (Auto) 0.0 (0.0-0.1) K/uL Nucleated RBC % 0.0 /100WBC Nucleated RBCs # 0 K/uL Sodium 137 (136-146) mmol/L Potassium 4.0 (3.5-5.1) mmol/L Chloride 104 (98-110) mmol/L Carbon Dioxide 23 (21-31) mmol/L BUN 11 (6.0-23.0) mg/dL Creatinine 0.7 (0.6-1.5) mg/dL Est Cr Clr Drug Dosing 112.44 mL/min Estimated GFR (MDRD) > 60.0 ml/min Glucose 105 (60-110) mg/dL Calcium 9.7 (8.8-10.8) mg/dL Total Bilirubin 0.3 (0.1-1.5) mg/dL AST 20 (5-40) IU/L ALT 18 (8-54) IU/L Alkaline Phosphatase 78 (40-150) Total Protein 6.9 (6.0-8.0) g/dL Albumin 3.6 (3.5-5.0) g/dL Globulin 3.3 (2.0-3.5) g/dL Albumin/Globulin Ratio 1.1 L (1.3-2.8) Amylase 43 (10-90) U/L Lipase 11 (7-80) U/L Urine Color YELLOW Urine Appearance SLT CLOUDY Urine pH 6.0 (5.0-8.0) Ur Specific [place] 1.020 (1.001-1.035) Urine Protein NEGATIVE (NEGATIVE) mg/dL Urine Glucose (UA) NEGATIVE (NEGATIVE) mg/dL Urine Ketones NEGATIVE (NEGATIVE) mg/dL Urine Occult Blood NEGATIVE (NEGATIVE) Urine Nitrite NEGATIVE (NEGATIVE) Urine Bilirubin NEGATIVE (NEGATIVE) Urine Urobilinogen 0.2 (<2.0) EU/dL Ur Leukocyte Esterase TRACE (NEGATIVE) Urine RBC 0-3 (0-2/HPF) Urine WBC 0-4 (0-5/HPF) Ur Epithelial Cells MODERATE (NONE-FEW) Urine Bacteria FEW (NEGATIVE) Urine Yeast RARE Meds: Medications Discontinued Medications Generic Name Dose Route Start Last Admin Trade Name Freq PRN Reason Stop Dose Admin Sodium Chloride 1,000 mls @ 999 mls/hr 01/29/17 23:33 01/29/17 23:50 Normal Saline IV 01/30/17 00:33 999 mls/hr STAT ONE Administration Iopamidol 100 ml 01/30/17 01:13 01/30/17 01:13 Isovue Multipack-370 (76%) IVPUSH 01/30/17 01:14 100 ml ONETIME STA Administration Ondansetron HCl 8 mg 01/29/17 23:33 01/29/17 23:50 Zofran IVPUSH 01/29/17 23:34 8 mg ONETIME ONE Administration Ondansetron HCl Confirm 01/29/17 23:46 01/29/17 23:51 Zofran Administered 01/29/17 23:47 Not Given Dose 4 mg .ROUTE .STK-MED ONE Departure - Departure Time of Disposition: 01:51 Disposition: Home, Self-Care 01 Condition: Good Clinical Impression: Postoperative pain - Discharge Information Referrals: Rossy Moore NP [Primary Care Provider] - Forms: ED Department Discharge Additional Instructions: Medication as prescribed Return if symptoms persist or worsen or fever nausea vomiting chills sweats or new concerning symptoms develop As discussed if pain persists call Gen. surgery Dr. So may move your appointment to be seen sooner as needed [facility] - General Surgery Professional [address], [address] [place] [address] The following information is given to patients seen in the emergency department who are being discharged to home. This information is to outline your options for follow-up care. We provide all patients seen in our emergency department with a follow-up referral. The need for follow-up, as well as the timing and circumstances, are variable depending upon the specifics of your emergency department visit. If you don't have a primary care physician on staff, we will provide you with a referral. We always advise you to contact your personal physician following an emergency department visit to inform them of the circumstance of the visit and for follow-up with them and/or the need for any referrals to a consulting specialist. The emergency department will also refer you to a specialist when appropriate. This referral assures that you have the opportunity for follow-up care with a specialist. All of these measure are taken in an effort to provide you with optimal care, which includes your follow-up. Under all circumstances we always encourage you to contact your private physician who remains a resource for coordinating your care. When calling for follow-up care, please make the office aware that this follow-up is from your recent emergency room visit. If for any reason you are refused follow-up, please contact the [facility] emergency department at and asked to speak to the emergency department charge nurse. - My Orders Last 24 Hours: My Active Orders 01/30/17 00:33 Abdomen Pelvis w Cont [CT] Stat 01/30/17 01:20 CULTURE URINE [RM] Stat - Assessment/Plan Last 24 Hours: My Active Orders 01/30/17 00:33 Abdomen Pelvis w Cont [CT] Stat 01/30/17 01:20 CULTURE URINE [RM] Stat
[2017-01-29] MEDS ORDERED: Ondansetron 4 MG/2 ML SDV ONE (23:46)
[2017-01-30 00:09] LABS: CHLORIDE,CL 104 mmol/L (98-110); SODIUM,NA 137 mmol/L (136-146)
[2017-01-30] MEDS ORDERED: Iopamidol 755 MG/ML 500 ML Multipack Bottle IVPUSH STA (01:13)
[2017-01-30 02:06] VITALS: BP 133/85
--- NOTE | 2017-02-01 10:07 | CT ---
EXAM DATE: 01/29/17 PATIENT'S AGE: 21 Patient: JULIANNA DELANEY Facility: [place], [place] Site . Site : 1995 Study: CT Abdomen/Pelvis [id number] 1:21:55 AM Ordering Physician: Claudette Rosado Final Report: INDICATION: Status post appendectomy 4 days ago on 01/25/2017. Left lower quadrant abdominal pain around incision site with nausea for 1 day. TECHNIQUE: CT abdomen and pelvis acquired with i.v. 100 mL Isovue 370. Coronal and sagittal reformats were obtained. COMPARISON: Recent CT study dated 01/24/2017. FINDINGS: Lower chest: Unremarkable. Liver: Unremarkable. Spleen: Unremarkable. Pancreas: Unremarkable. Gallbladder and bile ducts: Gallbladder contracted. Bile ducts normal in caliber. Kidneys: Unremarkable. No kidney or ureteral stones and no hydronephrosis seen. Adrenal glands: Unremarkable. GI tract: Names of bowel are normal in caliber. The appendix is surgically absent. No adjacent fluid collection in the right lower abdominal quadrant. Vascular: Unremarkable. Lymph nodes: Unremarkable. Miscellaneous: Unremarkable. No pneumoperitoneum is seen. No significant ascites is noted. Tiny fat containing umbilical hernia defect. No fluid collection in the anterior abdominal wall. Pelvic Organs: Unremarkable. Bones: Unremarkable for age. IMPRESSION: 1. Interval appendectomy. No significant inflammatory changes in the right lower abdominal quadrant. No postoperative abscess adjacent to the cecum or in the anterior abdominal wall. Dictated by Carlos Billy MD @ 01/30/2017 1:34:59 AM Dictated by: Carlos Billy MD @ 01/30/2017 01:35:59 (Electronic Signature) Report Signed by Proxy. [facility]
== END 2017-01-30 02:04 | disposition home or self-care (01) ==
LOC: MW.ED 23:23
DX: G89.18 Other acute postprocedural pain (principal); R10.32 Left lower quadrant pain; F17.210 Nicotine dependence, cigarettes, uncomplicated; Z90.49 Acquired absence of other specified parts of digestive tract; Z88.1 Allergy status to other antibiotic agents; Z88.5 Allergy status to narcotic agent; Z79.899 Other long term (current) drug therapy
CPT/HCPCS: 74177; 80053; 81001; 82150; 83690; 85025; 87086; 96361; 96374; 99284; J2405; J7040; Q9967; 99282

== ENCOUNTER 2017-07-27 18:25 | Emergency (ER) | payer BC ==
--- NOTE | 2017-07-27 19:10 | EDM.PDOC ---
ED HPI GENERAL MEDICAL PROBLEM - General Chief Complaint: Lower Extremity Injury/Pain Stated Complaint: PAIN RT ANKLE Time Seen by Provider: 07/27/17 19:05 Source of Information: Reports: Patient History Limitations: Reports: No Limitations - History of Present Illness INITIAL COMMENTS - FREE TEXT/NARRATIVE: HISTORY AND PHYSICAL: History of present illness: [Patient comes to the emergency room complaining of right ankle pain. Proximally 1-1/2 hours prior to ER arrival she slipped on some ice causing her to fall rolling her right ankle inward. She heard a popping sound and has been unable to bear weight since the incident occurred. She's complaining of numbness to her toes and inability to move her toes. No other injuries, complaints or concerns.] Review of systems: As per history of present illness and below otherwise all systems reviewed and negative. Past medical history: As per history of present illness and as reviewed below otherwise noncontributory. Surgical history: As per history of present illness and as reviewed below otherwise noncontributory. Social history: No reported history of drug or alcohol abuse. Family history: As per history of present illness and as reviewed below otherwise noncontributory. Physical exam: HEENT: Atraumatic, normocephalic. Extremities: Right ankle is atraumatic in appearance. Refill last than 2 seconds. Skin is warm dry pink and intact. She is exquisitely tender with palpation over her lateral and medial malleoli, into the top of her foot. Pedal pulses are intact per Doppler. No cords or calf pain. Neurovascular unremarkable. Neuro: Awake, alert, oriented. Motor and sensory unremarkable throughout. Exam nonfocal. Diagnostics: [R ankle xray] Impression: [Right ankle pain] Plan: [Patient is placed in an Aircast. Discussed that her x-ray shows no fractures or abnormalities. Recommend rest, ice, splint, elevation, [id number] analgesics as needed. Follow-up with primary care. She is in agreement with today's discussion.] Definitive disposition and diagnosis as appropriate pending reevaluation and review of above. Right Ankle Pain Score (Numeric/FACES): 7 - Related Data Allergies Allergy/AdvReac Type Severity Reaction Status Date / Time erythromycin base Allergy Severe Rash Verified 07/27/17 18:54 [Erythromycin Base] azithromycin Allergy Rash Verified 07/27/17 18:54 codeine AdvReac Rash Verified 04/03/18 18:54 Home Meds: Home Meds . [No Known Home Meds] 07/27/17 [History] Past Medical History - Past Health History Medical/Surgical History: Denies Medical/Surgical History Cardiovascular History: Reports: None Respiratory History: Reports: None Gastrointestinal History: Reports: None - Infectious Disease History Infectious Disease History: Reports: Chicken Pox - Past Surgical History Head Surgeries/Procedures: Reports: None GI Surgical History: Reports: Appendectomy Social & Family History - Family History Family Medical History: Noncontributory - Tobacco Use Smoking Status *Q: Current Every Day Smoker Years of Tobacco use: 2 Packs/Tins Daily: 0.7 Second Hand Smoke Exposure: Yes - Caffeine Use Caffeine Use: Reports: Energy Drinks, Soda Other Caffeine Use: 1/day - Recreational Drug Use Recreational Drug Use: No Review of Systems - Review of Systems Review Of Systems: ROS reveals no pertinent complaints other than HPI. ED EXAM, GENERAL - Physical Exam Exam: See Below Course - Vital Signs Last Recorded V/S: Last Vital Signs Temp 97.9 F 07/27/17 18:52 Pulse 98 07/27/17 18:52 Resp 18 07/27/17 18:52 BP 126/67 07/27/17 18:52 Pulse Ox 98 07/27/17 18:52 - Orders/Labs/Meds Orders: Active Orders 24 hr Category Date Time Status Ankle Min 3V Rt [CR] Stat Exams 07/27/17 19:10 Taken Departure - Departure Time of Disposition: 20:00 Disposition: Home, Self-Care 01 Condition: Good Clinical Impression: Right ankle pain - Discharge Information Referrals: Rossy Moore NP [Primary Care Provider] - Forms: ED Department Discharge Additional Instructions: The following information is given to patients seen in the emergency department who are being discharged to home. This information is to outline your options for follow-up care. We provide all patients seen in our emergency department with a follow-up referral. The need for follow-up, as well as the timing and circumstances, are variable depending upon the specifics of your emergency department visit. If you don't have a primary care physician on staff, we will provide you with a referral. We always advise you to contact your personal physician following an emergency department visit to inform them of the circumstance of the visit and for follow-up with them and/or the need for any referrals to a consulting specialist. The emergency department will also refer you to a specialist when appropriate. This referral assures that you have the opportunity for follow-up care with a specialist. All of these measure are taken in an effort to provide you with optimal care, which includes your follow-up. Under all circumstances we always encourage you to contact your private physician who remains a resource for coordinating your care. When calling for follow-up care, please make the office aware that this follow-up is from your recent emergency room visit. If for any reason you are refused follow-up, please contact the [facility] emergency department at and asked to speak to the emergency department charge nurse. [facility] [address] [place] [id number] Follow-up with her local primary care provider at the clinic listed above in 48- 72 hours. Restoril ankle, ice pack, wear the Aircast, elevate her leg as much as possible. [id number] Tylenol and ibuprofen as needed for discomfort. Return to ER as needed as discussed. - My Orders Last 24 Hours: My Active Orders 07/27/17 19:10 Ankle Min 3V Rt [CR] Stat - Assessment/Plan Last 24 Hours: My Active Orders 07/27/17 19:10 Ankle Min 3V Rt [CR] Stat
[2017-07-28 04:41] VITALS: BP 121/63
--- NOTE | 2017-07-28 10:06 | CR ---
EXAM DATE: 07/27/17 PATIENT'S AGE: 22 Patient: JULIANNA DELANEY Facility: [place], [place] Site . Site : 1995 Study: XRay Extremity Right ankle [id number] 7:28:25 PM Ordering Physician: Doctor Clifford Final Report: INDICATION: slipped on ice and rolled ankle TECHNIQUE: Three views of the right ankle COMPARISON: None FINDINGS: Bones: No fractures or bone lesions. Joint spaces: Unremarkable. Soft tissues: Unremarkable. IMPRESSION: No acute bony abnormality Dictated by Jonny Avila MD @ 07/27/2017 7:46:59 PM Dictated by: Jonny Avila MD @ 07/27/2017 19:47:07 (Electronic Signature) Report Signed by Proxy. [facility]
== END 2017-07-27 20:14 | disposition home or self-care (01) ==
LOC: MW.ED 18:25
DX: M25.571 Pain in right ankle and joints of right foot (principal); F17.210 Nicotine dependence, cigarettes, uncomplicated; Z90.49 Acquired absence of other specified parts of digestive tract; Z88.1 Allergy status to other antibiotic agents; Z88.5 Allergy status to narcotic agent
CPT/HCPCS: 73610-26-RT; 73610-RT; 99283

== ENCOUNTER 2017-09-25 01:45 | Emergency (ER) | payer BC ==
--- NOTE | 2017-09-25 01:55 | EDM.PDOC ---
ED HPI GENERAL MEDICAL PROBLEM - General Stated Complaint: - POSSIBLE MISCARRIAGE Time Seen by Provider: 09/25/17 01:47 Source of Information: Reports: Patient History Limitations: Reports: No Limitations - History of Present Illness INITIAL COMMENTS - FREE TEXT/NARRATIVE: HISTORY AND PHYSICAL: History of present illness: 22-year-old female presenting emergency department with chief complaint of lower abdominal pain starting last evening. Patient states that around 10 PM last evening 09/24 she began to have lower "crampy" abdominal pain. Pain 8 out of 10 and sharp with no radiation. Some associated nausea without vomiting. Denies fever, chills, recent illness, dysuria, hematuria, constipation. Last bowel movement today soft, denies bloody stool or dark tarry stool. States that her last menstrual period was sometime in May. She did take 2 home tests that were positive. States that she has been one other time but had a miscarriage at about 5 week' s. States that her pain is similar to that in the past. Denies any vaginal bleeding or spotting. Denies history of kidney stones. Still has her gallbladder but had an appendectomy. Denies history of STD. -0425 Pelvic US No intrauterine identified. When talking with patient she states that she did have some spotting last night but did not seem to be much. I'm still concerned that the patient may have had an incomplete . Patient is adamant that she wants to go home at this time. She is no longer have any pain. Urine hCG Quant and Qual negative. There was a simple cyst on the left ovary measuring 3 x 2.7 x 3 cm which could be contributing to the patient pain. Patient states that she does see Rossy Shah and will follow with her on Wednesday. I reiterated the importance that she make this appointment as she could have some retained products from a miscarriage. She confimed that she would definetly follow-up with Rossy. She remained afebrile and showed no signs of systemic infection or vaginal bleeding. I instructed her to return to emergency department immediately if she showed any fever, chills, nausea, vomiting, vaginal bleeding. Review of systems: As per history of present illness and below otherwise all systems reviewed and negative. Past medical history: As per history of present illness and as reviewed below otherwise noncontributory. Surgical history: As per history of present illness and as reviewed below otherwise noncontributory. Social history: No reported history of drug or alcohol abuse. Family history: As per history of present illness and as reviewed below otherwise noncontributory. Physical exam: HEENT: Atraumatic, normocephalic, pupils reactive, negative for conjunctival pallor or scleral icterus, mucous membranes moist, throat clear, neck supple, nontender, trachea midline. Lungs: Clear to auscultation, breath sounds equal bilaterally, chest nontender. Heart: S1S2, regular, negative for clicks, rubs, or JVD. Abdomen: Soft, nondistended, Tenderness to palpation suprapubic, Negative for masses or hepatosplenomegaly. Negative for costovertebral tenderness. Genitourinary: Deferred. Rectal: Deferred. Extremities: Atraumatic, negative for cords or calf pain. Neurovascular unremarkable. Neuro: Awake, alert, oriented. Cranial nerves II through XII unremarkable. Cerebellum unremarkable. Motor and sensory unremarkable throughout. Exam nonfocal. Pelvic: Examination revealed normal female external genitalia, urethra and vagina with skin intact and no lesions noted. Internal Examination: Vaginal speculum was used. Vaginal vault was free of any bleeding or discharge. Cervix : Well visualized, small, smooth, positive for cervical motion tenderness. Culture obtained. Bimanual exam revealed no masses, Left sided tenderness. Adnexa nonpalpable. Diagnostics: CBC, BMP, hCG Qual, hCG Quant, UA/UC, pelvic ultrasound Therapeutics: [] Impression: Complete vs incomplete spontaneous Left ovarian simple cyst Plan: See H&P above. I counseled the patient at length about following up as she did not want to stay further in the emergency department and I was concerned about a incomplete . She once again confirmed that she would follow-up with oRssy Shah on Wednesday. I gave her Rossy's number as well as instructed her to tell them that she had been in seen in the emergency department for this and that she needed to be seen as soon as possible. As above CBC, CMP, hCG Qual, hCG Quant, UA/UC were unremarkable. Pelvic ultrasound did not reveal an intrauterine . Definitive disposition and diagnosis as appropriate pending reevaluation and review of above. pelvic Pain Score (Numeric/FACES): 8 - Related Data Allergies Allergy/AdvReac Type Severity Reaction Status Date / Time erythromycin base Allergy Severe Rash Verified 09/25/17 01:52 [Erythromycin Base] azithromycin Allergy Rash Verified 09/25/17 01:52 codeine AdvReac Rash Verified 09/25/17 01:52 Home Meds: Home Meds . [No Known Home Meds] 07/27/17 [History] Past Medical History - Past Health History Medical/Surgical History: Denies Medical/Surgical History Cardiovascular History: Reports: None Respiratory History: Reports: None Gastrointestinal History: Reports: None - Infectious Disease History Infectious Disease History: Reports: Chicken Pox - Past Surgical History Head Surgeries/Procedures: Reports: None GI Surgical History: Reports: Appendectomy Social & Family History - Family History Family Medical History: Noncontributory - Caffeine Use Caffeine Use: Reports: Energy Drinks, Soda Other Caffeine Use: 1/day ED ROS GENERAL - Review of Systems Review Of Systems: See Below ED EXAM, GENERAL - Physical Exam Exam: See Below Course - Vital Signs Last Recorded V/S: Last Vital Signs Temp 97.8 F 09/25/17 03:30 Pulse 88 09/25/17 03:30 Resp 14 09/25/17 03:30 BP 121/60 09/25/17 03:30 Pulse Ox 96 09/25/17 03:30 - Orders/Labs/Meds Orders: Active Orders 24 hr Category Date Time Status Abdomen Pelvis wo Cont [CT] Stat Exams 09/25/17 04:41 Stop Req OB 1st Tri Sgl 1st Gest [US] Stat Exams 09/25/17 02:12 Taken CULTURE URINE [RM] Stat Lab 09/25/17 02:01 Ordered HCG QUALITATIVE,URINE [URCHEM] Stat Lab 09/25/17 02:01 Ordered UA W/MICROSCOPIC [URIN] Stat Lab 09/25/17 02:01 Ordered Labs: Laboratory Tests 09/25/17 09/25/17 09/25/17 Range/Units 02:01 02:01 02:15 WBC 12.41 H (4.0-11.0) K/uL RBC 4.89 (4.30-5.90) M/uL Hgb 14.1 (12.0-16.0) g/dL Hct 41.5 (36.0-46.0) % MCV 84.9 (80.0-98.0) fL MCH 28.8 (27.0-32.0) pg MCHC 34.0 (31.0-37.0) g/dL RDW Std Deviation 38.2 (28.0-62.0) fl RDW Coeff of Wendy 13 (11.0-15.0) % Plt Count 312 (150-400) K/uL MPV 10.20 (7.40-12.00) fL Neut % (Auto) 65.8 (48.0-80.0) % Lymph % (Auto) 24.1 (16.0-40.0) % [place] % (Auto) 9.5 (0.0-15.0) % Eos % (Auto) 0.4 (0.0-7.0) % Baso % (Auto) 0.2 (0.0-1.5) % Neut # (Auto) 8.2 H (1.4-5.7) K/uL Lymph # (Auto) 3.0 H (0.6-2.4) K/uL [place] # (Auto) 1.2 H (0.0-0.8) K/uL Eos # (Auto) 0.1 (0.0-0.7) K/uL Baso # (Auto) 0.0 (0.0-0.1) K/uL Sodium (136-145) mmol/L Potassium (3.5-5.1) mmol/L Chloride (98-107) mmol/L Carbon Dioxide (21.0-32.0) mmol/L BUN (7.0-18.0) mg/dL Creatinine (0.6-1.0) mg/dL Est Cr Clr Drug Dosing mL/min Estimated GFR (MDRD) ml/min Glucose (74-106) mg/dL Calcium (8.5-10.1) mg/dL HCG, Quant mIU/mL Urine Color YELLOW Urine Appearance HAZY Urine pH 6.0 (5.0-8.0) Ur Specific Jackson >= 1.030 (1.001-1.035) Urine Protein NEGATIVE (NEGATIVE) mg/dL Urine Glucose (UA) NEGATIVE (NEGATIVE) mg/dL Urine Ketones NEGATIVE (NEGATIVE) mg/dL Urine Occult Blood NEGATIVE (NEGATIVE) Urine Nitrite NEGATIVE (NEGATIVE) Urine Bilirubin NEGATIVE (NEGATIVE) Urine Urobilinogen 0.2 (<2.0) EU/dL Ur Leukocyte Esterase NEGATIVE (NEGATIVE) Urine RBC 0-2 (0-2/HPF) Urine WBC 0-5 (0-5/HPF) Ur Epithelial Cells OCCASIONAL (NONE-FEW) Urine Bacteria FEW (NEGATIVE) Urine HCG, Qual NEGATIVE (NEGATIVE) 09/25/17 Range/Units 02:15 WBC (4.0-11.0) K/uL RBC (4.30-5.90) M/uL Hgb (12.0-16.0) g/dL Hct (36.0-46.0) % MCV (80.0-98.0) fL MCH (27.0-32.0) pg MCHC (31.0-37.0) g/dL RDW Std Deviation (28.0-62.0) fl RDW Coeff of Wendy (11.0-15.0) % Plt Count (150-400) K/uL MPV (7.40-12.00) fL Neut % (Auto) (48.0-80.0) % Lymph % (Auto) (16.0-40.0) % [place] % (Auto) (0.0-15.0) % Eos % (Auto) (0.0-7.0) % Baso % (Auto) (0.0-1.5) % Neut # (Auto) (1.4-5.7) K/uL Lymph # (Auto) (0.6-2.4) K/uL [place] # (Auto) (0.0-0.8) K/uL Eos # (Auto) (0.0-0.7) K/uL Baso # (Auto) (0.0-0.1) K/uL Sodium 138 (136-145) mmol/L Potassium 4.0 (3.5-5.1) mmol/L Chloride 102 (98-107) mmol/L Carbon Dioxide 25.2 (21.0-32.0) mmol/L BUN 15 (7.0-18.0) mg/dL Creatinine 0.9 (0.6-1.0) mg/dL Est Cr Clr Drug Dosing 89.72 mL/min Estimated GFR (MDRD) > 60.0 ml/min Glucose 109 H (74-106) mg/dL Calcium 10.0 (8.5-10.1) mg/dL HCG, Quant < 1.0 mIU/mL Urine Color Urine Appearance Urine pH (5.0-8.0) Ur Specific Jackson (1.001-1.035) Urine Protein (NEGATIVE) mg/dL Urine Glucose (UA) (NEGATIVE) mg/dL Urine Ketones (NEGATIVE) mg/dL Urine Occult Blood (NEGATIVE) Urine Nitrite (NEGATIVE) Urine Bilirubin (NEGATIVE) Urine Urobilinogen (<2.0) EU/dL Ur Leukocyte Esterase (NEGATIVE) Urine RBC (0-2/HPF) Urine WBC (0-5/HPF) Ur Epithelial Cells (NONE-FEW) Urine Bacteria (NEGATIVE) Urine HCG, Qual (NEGATIVE) Departure - Departure Time of Disposition: 04:54 Disposition: Home, Self-Care 01 Condition: Good Clinical Impression: Spontaneous - Discharge Information Referrals: Rossy Moore NP [Primary Care Provider] - Additional Instructions: My general discharge The following information is given to patients seen in the emergency department who are being discharged to home. This information is to outline your options for follow-up care. We provide all patients seen in our emergency department with a follow-up referral. The need for follow-up, as well as the timing and circumstances, are variable depending upon the specifics of your emergency department visit. If you don't have a primary care physician on staff, we will provide you with a referral. We always advise you to contact your personal physician following an emergency department visit to inform them of the circumstance of the visit and for follow-up with them and/or the need for any referrals to a consulting specialist. The emergency department will also refer you to a specialist when appropriate. This referral assures that you have the opportunity for follow-up care with a specialist. All of these measure are taken in an effort to provide you with optimal care, which includes your follow-up. Under all circumstances we always encourage you to contact your private physician who remains a resource for coordinating your care. When calling for follow-up care, please make the office aware that this follow-up is from your recent emergency room visit. If for any reason you are refused follow-up, please contact the [facility] Emergency Department at and asked to speak to the emergency department charge nurse. [facility] - [facility] [address] [place] [id number] Be sure to call and schedule appointment with Rossy on Wednesday. Need to be seen immediately secondary to possible incomplete miscarriage and possible retained products. Return in the emergency department immediately if any new or worsening symptoms. - My Orders Last 24 Hours: My Active Orders 09/25/17 02:01 CULTURE URINE [RM] Stat HCG QUALITATIVE,URINE [URCHEM] Stat UA W/MICROSCOPIC [URIN] Stat 09/25/17 02:12 OB 1st Tri Sgl 1st Gest [US] Stat 09/25/17 04:41 Abdomen Pelvis wo Cont [CT] Stat - Assessment/Plan Last 24 Hours: My Active Orders 09/25/17 02:01 CULTURE URINE [RM] Stat HCG QUALITATIVE,URINE [URCHEM] Stat UA W/MICROSCOPIC [URIN] Stat 09/25/17 02:12 OB 1st Tri Sgl 1st Gest [US] Stat 09/25/17 04:41 Abdomen Pelvis wo Cont [CT] Stat
[2017-09-25 03:07] LABS: CHLORIDE,CL 102 mmol/L (98-107); SODIUM,NA 138 mmol/L (136-145)
[2017-09-25 05:01] VITALS: BP 119/71
--- NOTE | 2017-09-27 08:48 | US ---
EXAM DATE: 09/25/17 PATIENT'S AGE: 22 Patient: JULIANNA DELANEY Facility: [place], [place] Site . Site : 1995 Study: US OB Pelvis [id number]/[id number] 3:18:02 AM Ordering Physician: Heriberto Solitario Final Report: INDICATION: Pelvic pain TECHNIQUE: Ultrasound OB pelvis transvaginal. Real time celis scale imaging of the pelvis was performed. COMPARISON: None FINDINGS: Gestational Sac: No intrauterine gestational sac or pole is identified. Uterus: The visualized myometrium appears normal. The endometrium is thickened and mildly heterogeneous in appearance, measuring 5 mm. No endometrial vascularity is documented. Pelvis: The right ovary measures 1.9 x 1.5 x 1.2 cm and the left ovary measures 3.2 x 3.2 x 3.8 cm. Arterial and venous blood flow seen within the both ovaries. There is a simple cyst in the left ovary that measures 3 x 2.7 x 3 cm. No significant ascites noted. IMPRESSION: 1. No intrauterine IUP is identified. By the 2012 Society of Radiologists in Ultrasound consensus panel criteria, this is a of unknown location. Followup beta HCG and ultrasound is recommended to distinguish between a normal early IUP, complete , or ectopic . 2. If a spontaneous is clinically confirmed, followup is also recommended to exclude retained products of conception given the thickened, heterogeneous appearance to the endometrium. Dictated by Arslan Art MD @ 09/25/2017 4:15:04 AM Dictated by: Arslan Art MD @ 09/25/2017 04:15:09 (Electronic Signature) Report Signed by Proxy. YOLIE
== END 2017-09-25 04:59 | disposition home or self-care (01) ==
LOC: MW.ED 01:45
DX: O03.9 Complete or unspecified spontaneous abortion without complication (principal); N83.202 Unspecified ovarian cyst, left side; Z88.1 Allergy status to other antibiotic agents; Z88.5 Allergy status to narcotic agent; Z90.49 Acquired absence of other specified parts of digestive tract
CPT/HCPCS: 36415; 76801; 76801-26; 80048; 81001; 81025; 84702; 85025; 87086; 99283; 99284-25

== ENCOUNTER 2018-12-11 12:09 | Emergency (ER) | payer BC ==
[2018-12-11] MEDS ORDERED: cefTRIAXone 1 GM Vial IM ONE (12:35)
--- NOTE | 2018-12-11 12:36 | EDM.PDOC ---
ED HPI GENERAL MEDICAL PROBLEM - General Chief Complaint: Skin Complaint Stated Complaint: SWOLLEN LIP Time Seen by Provider: 12/11/18 12:36 Source of Information: Reports: Patient - History of Present Illness INITIAL COMMENTS - FREE TEXT/NARRATIVE: HISTORY AND PHYSICAL: History of present illness: [Patient with recent piercing 3 days prior to arrival presents with swollen unable to get piercing out her was going to inject with lidocaine however patient was unable to get the piercing out of the right gram of Rocephin as well as patient will be on Bactrim no fever nausea vomiting chills sweats Nursing removed. Patient ] Review of systems: As per history of present illness and below otherwise all systems reviewed and negative. Past medical history: As per history of present illness and as reviewed below otherwise noncontributory. Surgical history: As per history of present illness and as reviewed below otherwise noncontributory. Social history: No reported history of drug or alcohol abuse. Family history: As per history of present illness and as reviewed below otherwise noncontributory. Physical exam: HEENT: Atraumatic, normocephalic, pupils reactive, negative for conjunctival pallor or scleral icterus, mucous membranes moist, throat clear, neck supple, nontender, trachea midline. Lungs: Clear to auscultation, breath sounds equal bilaterally, chest nontender. Heart: S1S2, regular, negative for clicks, rubs, or JVD. Abdomen: Soft, nondistended, nontender. Negative for masses or hepatosplenomegaly. Negative for costovertebral tenderness. Pelvis: Stable nontender. Genitourinary: Deferred. Rectal: Deferred. Extremities: Atraumatic, negative for cords or calf pain. Neurovascular unremarkable. Neuro: Awake, alert, oriented. Cranial nerves II through XII unremarkable. Cerebellum unremarkable. Motor and sensory unremarkable throughout. Exam nonfocal. Diagnostics: [] Therapeutics: [1 g Rocephin IM Bactrim ] Impression: [ cellulitis secondary to bruising Lip piercing removed Definitive disposition and diagnosis as appropriate pending reevaluation and review of above. Lip Pain Score (Numeric/FACES): 6 - Related Data Allergies Allergy/AdvReac Type Severity Reaction Status Date / Time erythromycin base Allergy Severe Rash Verified 12/11/18 12:21 [Erythromycin Base] azithromycin Allergy Rash Verified 12/11/18 12:21 codeine AdvReac Rash Verified 12/11/18 12:21 Home Meds: Home Meds . [No Known Home Meds] 07/27/17 [History] Past Medical History - Past Health History Medical/Surgical History: Denies Medical/Surgical History HEENT History: Reports: None Cardiovascular History: Reports: None Respiratory History: Reports: None Gastrointestinal History: Reports: None Genitourinary History: Reports: None MED ASST History: Reports: , Spontaneous Musculoskeletal History: Reports: None Neurological History: Reports: None Psychiatric History: Reports: None Endocrine/Metabolic History: Reports: None Oncologic (Cancer) History: Reports: None Dermatologic History: Reports: None - Infectious Disease History Infectious Disease History: Reports: Chicken Pox - Past Surgical History Head Surgeries/Procedures: Reports: None GI Surgical History: Reports: Appendectomy Social & Family History - Family History Family Medical History: Noncontributory - Tobacco Use Smoking Status *Q: Current Every Day Smoker Years of Tobacco use: 3 Packs/Tins Daily: 0.5 - Caffeine Use Caffeine Use: Reports: Energy Drinks, Soda Other Caffeine Use: 1/day - Recreational Drug Use Recreational Drug Use: No ED ROS GENERAL - Review of Systems Review Of Systems: See Below ED EXAM, SKIN/RASH Exam: See Below Course - Vital Signs Last Recorded V/S: Last Vital Signs Temp 96.8 F 12/11/18 12:18 Pulse 105 H 12/11/18 12:18 Resp 18 12/11/18 12:18 BP 128/83 12/11/18 12:18 Pulse Ox 98 12/11/18 12:18 - Orders/Labs/Meds Meds: Medications Discontinued Medications Generic Name Dose Route Start Last Admin Trade Name Maria Eugenia PRN Reason Stop Dose Admin Ceftriaxone Sodium 1 gm 12/11/18 12:35 12/11/18 12:57 Rocephin IM 12/11/18 12:36 1 gm ONETIME ONE Administration Lidocaine HCl 5 ml 12/11/18 12:36 12/11/18 12:57 Xylocaine-Mpf 1% INJECT 12/11/18 12:37 2.1 ml ONETIME ONE Administration Departure - Departure Time of Disposition: 13:00 Disposition: Home, Self-Care 01 Condition: Good Clinical Impression: Cellulitis - Discharge Information Referrals: PCP,Unknown [Primary Care Provider] - Forms: ED Department Discharge Additional Instructions: The following information is given to patients seen in the emergency department who are being discharged to home. This information is to outline your options for follow-up care. We provide all patients seen in our emergency department with a follow-up referral. The need for follow-up, as well as the timing and circumstances, are variable depending upon the specifics of your emergency department visit. If you don't have a primary care physician on staff, we will provide you with a referral. We always advise you to contact your personal physician following an emergency department visit to inform them of the circumstance of the visit and for follow-up with them and/or the need for any referrals to a consulting specialist. The emergency department will also refer you to a specialist when appropriate. This referral assures that you have the opportunity for follow-up care with a specialist. All of these measure are taken in an effort to provide you with optimal care, which includes your follow-up. Under all circumstances we always encourage you to contact your private physician who remains a resource for coordinating your care. When calling for follow-up care, please make the office aware that this follow-up is from your recent emergency room visit. If for any reason you are refused follow-up, please contact the [facility] emergency department at and asked to speak to the emergency department charge nurse.
[2018-12-11 13:09] VITALS: BP 109/64
== END 2018-12-11 13:08 | disposition home or self-care (01) ==
LOC: MW.ED 12:09
DX: K13.0 Diseases of lips (principal); F17.210 Nicotine dependence, cigarettes, uncomplicated; Z88.1 Allergy status to other antibiotic agents; Z88.5 Allergy status to narcotic agent
CPT/HCPCS: 96372; 99283; J0696; J2001

== ENCOUNTER 2019-04-22 20:36 | Emergency (ER) | payer BC ==
--- NOTE | 2019-04-22 20:58 | EDM.PDOC ---
ED HPI GENERAL MEDICAL PROBLEM - General Chief Complaint: Abdominal Pain Stated Complaint: PELVIC PAIN SOB HOT FLASHES Time Seen by Provider: 04/22/19 20:53 Source of Information: Reports: Patient History Limitations: Reports: No Limitations - History of Present Illness INITIAL COMMENTS - FREE TEXT/NARRATIVE: Patient is a 23-year-old female who is complaining having sharp stabbing pelvic pain which started about 4:00 this afternoon and she has had several episodes of this. Patient states every 30 minutes or so she gets 2 or 3 minutes of this sharp pain. Does not appear to be worse with movement. Patient is not certain whether she is or not this months she is having to menstrual periods and is currently menstruating where she also had a period approximately 2 weeks ago. Patient has not had similar pain in the past though does have a history of ovarian cysts. Take anything for current symptoms. There is no dysuria or vaginal discharge patient denies any fever chills or bloody stools. Patient has had an appendectomy. Duration: Intermittent Location: Reports: Pelvis Quality: Reports: Ache, Sharp, Stabbing Severity: Severe Improves with: Reports: None Worsens with: Reports: None Associated Symptoms: Reports: No Other Symptoms Low Abdomen Pain Score (Numeric/FACES): 7 - Related Data Allergies Allergy/AdvReac Type Severity Reaction Status Date / Time erythromycin base Allergy Severe Rash Verified 04/22/19 20:52 [Erythromycin Base] azithromycin Allergy Rash Verified 04/22/19 20:52 codeine AdvReac Rash Verified 04/22/19 20:52 Home Meds: Home Meds . [No Known Home Meds] 07/27/17 [History] Past Medical History - Past Health History Medical/Surgical History: Denies Medical/Surgical History HEENT History: Reports: None Cardiovascular History: Reports: None Respiratory History: Reports: None Gastrointestinal History: Reports: None Genitourinary History: Reports: None CYLINDER GRINDER History: Reports: , Spontaneous Musculoskeletal History: Reports: None Neurological History: Reports: None Psychiatric History: Reports: None Endocrine/Metabolic History: Reports: None Oncologic (Cancer) History: Reports: None Dermatologic History: Reports: None - Infectious Disease History Infectious Disease History: Reports: Chicken Pox - Past Surgical History Head Surgeries/Procedures: Reports: None GI Surgical History: Reports: Appendectomy Social & Family History - Family History Family Medical History: Noncontributory - Caffeine Use Caffeine Use: Reports: Energy Drinks, Soda Other Caffeine Use: 1/day ED ROS GENERAL - Review of Systems Review Of Systems: Comprehensive ROS is negative, except as noted in HPI. ED EXAM, GI/ABD - Physical Exam Exam: See Below Text/Narrative:: Exam: See Below Exam Limited By: No Limitations Head: Atraumatic Neck: Normal Inspection. No: Carotid Bruit, Lymphadenopathy (R) Respiratory/Chest: No Respiratory Distress, Lungs Clear, Normal Breath Sounds, No Accessory Muscle Use. No: Chest Non-Tender Cardiovascular: Normal Peripheral Pulses, Regular Rate, Rhythm, No Edema, No JVD GI/Abdominal: Normal Bowel Sounds, mild suprapubic tenderness without any rebound or guarding or masses. Back Exam: Normal Inspection. No: CVA Tenderness (R) Extremities: Normal Inspection. No: No Pedal Edema Neurological: Alert, Oriented, Normal Cognition Psychiatric: Normal Affect Skin Exam: Warm Lymphatic: No Adenopathy Exam Limited By: No Limitations General Appearance: Alert Course - Vital Signs Last Recorded V/S: Last Vital Signs Temp 35.9 C 04/22/19 20:49 Pulse 97 04/22/19 20:49 Resp 18 04/22/19 20:49 BP 144/105 H 04/22/19 20:49 Pulse Ox 96 04/22/19 20:49 - Orders/Labs/Meds Labs: Laboratory Tests 04/22/19 04/22/19 Range/Units 20:55 20:55 Urine Color YELLOW Urine Appearance SLT CLOUDY Urine pH 8.0 (5.0-8.0) Ur Specific [place] 1.020 (1.001-1.035) Urine Protein NEGATIVE (NEGATIVE) mg/dL Urine Glucose (UA) NEGATIVE (NEGATIVE) mg/dL Urine Ketones NEGATIVE (NEGATIVE) mg/dL Urine Occult Blood MODERATE H (NEGATIVE) Urine Nitrite NEGATIVE (NEGATIVE) Urine Bilirubin NEGATIVE (NEGATIVE) Urine Urobilinogen 0.2 (<2.0) EU/dL Ur Leukocyte Esterase NEGATIVE (NEGATIVE) Urine RBC 0-2 (0-2/HPF) Urine WBC 0-2 (0-5/HPF) Ur Epithelial Cells FEW (NONE-FEW) Urine Bacteria RARE (NEGATIVE) Urine HCG, Qual NEGATIVE (NEGATIVE) Meds: Medications Discontinued Medications Generic Name Dose Route Start Last Admin Trade Name Freq PRN Reason Stop Dose Admin Indomethacin 50 mg 04/22/19 20:59 04/22/19 21:09 Indocin PO 04/22/19 21:00 50 mg ONETIME ONE Administration - Re-Assessments/Exams Free Text/Narrative Re-Assessment/Exam: 04/22/19 21:28 Patient's urine is positive only for blood which is not surprising because she is on her menstrual period. test is negative. Patient received some indomethacin which is helping somewhat with her pain I will give her a prescription for additional plus a prescription for a few [place]. She is to follow-up with her rail doweling machine operator if symptoms continue patient all treatment and work-up. She may return to ER if symptoms worsen. Departure - Departure Time of Disposition: 21:29 Disposition: Home, Self-Care 01 Condition: Good Clinical Impression: Pelvic pain - Discharge Information Instructions: Pelvic Pain, Female, [id number] Referrals: Rossy Moore VIROLOGY TEACHER [Primary Care Provider] - Forms: ED Department Discharge Additional Instructions: Follow-up with rail doweling machine operator as soon as possible. Return to ER if worse. Indomethacin and [place] as prescribed. The following information is given to patients seen in the emergency department who are being discharged to home. This information is to outline your options for follow-up care. We provide all patients seen in our emergency department with a follow-up referral. The need for follow-up, as well as the timing and circumstances, are variable depending upon the specifics of your emergency department visit. If you don't have a primary care physician on staff, we will provide you with a referral. We always advise you to contact your personal physician following an emergency department visit to inform them of the circumstance of the visit and for follow-up with them and/or the need for any referrals to a consulting specialist. The emergency department will also refer you to a specialist when appropriate. This referral assures that you have the opportunity for follow-up care with a specialist. All of these measure are taken in an effort to provide you with optimal care, which includes your follow-up. Under all circumstances we always encourage you to contact your private physician who remains a resource for coordinating your care. When calling for follow-up care, please make the office aware that this follow-up is from your recent emergency room visit. If for any reason you are refused follow-up, please contact the [facility] Emergency Department at and asked to speak to the emergency department charge nurse. Sepsis Event Note - Evaluation Sepsis Screening Result: No Definite Risk - Focused Exam Vital Signs: Vital Signs Temp Pulse Resp BP Pulse Ox 04/22/19 20:49 35.9 C 97 18 144/105 H 96 Date Exam was Performed: 04/22/19 Time Exam was Performed: 21:25
[2019-04-22] MEDS ORDERED: Indomethacin 25 MG Cap PO ONE (20:59)
[2019-04-22 21:51] VITALS: BP 122/84; PULSE 89
== END 2019-04-22 21:45 | disposition home or self-care (01) ==
LOC: MW.ED 20:36
DX: R10.2 Pelvic and perineal pain (principal); Z88.1 Allergy status to other antibiotic agents; Z88.5 Allergy status to narcotic agent
CPT/HCPCS: 81001; 81025; 99284; A9270

== ENCOUNTER 2019-06-20 19:11 | Emergency (ER) | payer BC ==
[2019-06-20] MEDS ORDERED: Ketorolac 30 MG/ML SDV IM ONE (21:42)
--- NOTE | 2019-06-20 21:57 | EDM.PDOC ---
ED HPI GENERAL MEDICAL PROBLEM - General Chief Complaint: Lower Extremity Injury/Pain Stated Complaint: RIGHT ANKLE INJURY Time Seen by Provider: 06/20/19 21:55 Source of Information: Reports: Patient History Limitations: Reports: No Limitations - History of Present Illness INITIAL COMMENTS - FREE TEXT/NARRATIVE: Patient is a 24-year-old female with a insignificant medical history presenting with a chief complaint of right foot pain. Patient states she slipped and fell on the ice earlier today inverting her foot. Patient require reports 2 falls after that due to the pain. Patient reports that the pain is primarily on the lateral aspect of her right foot associated with some numbness and tingling. Pain does not radiate. Patient reports inability to bear weight on that right foot. Patient is taken some ibuprofen with mild relief. Patient denies any other injuries to her body. Pmhx: None Pshx: None Family Hx: noncontributory Smoking history? no Etoh use? none Drug use? none Review of systems reviewed and otherwise negative I have reviewed the triage vital signs Const: Well nourished, well developed, appears stated age Eyes: PERRL, no conjunctival injection HENT: NCAT, Neck supple without meningismus CV: RRR, Warm, well-perfused extremities RESP: CTAB, Unlabored respiratory effort GI: soft, non-tender, non-distended, no masses MSK: Patient demonstrates tenderness to palpation of the base of the right metatarsal. Has minimal swelling. Good motor sensation in the right foot. Skin: Minimal swelling with some tattoos on the right foot Neuro: Alert, benefits manager II-XII grossly intact. Sensation and motor function of extremities grossly intact. Psych: Appropriate mood and affect Assessment and plan: Patient is 24-year-old female presenting with right foot pain. Patient does not have any evidence of fracture on x-ray. Patient has likely ankle sprain. Patient will be given crutches and Raji wrap with instructions for ankle sprain. Patient will be given education on recovery. All questions were addressed and answered. Patient agrees with plan. right foot Pain Score (Numeric/FACES): 8 - Related Data Allergies Allergy/AdvReac Type Severity Reaction Status Date / Time erythromycin base Allergy Severe Rash Verified 06/20/19 20:21 [Erythromycin Base] azithromycin Allergy Rash Verified 06/20/19 20:21 codeine AdvReac Rash Verified 06/20/19 20:21 Home Meds: Home Meds . [No Known Home Meds] 06/20/19 [History] Past Medical History - Past Health History Medical/Surgical History: Denies Medical/Surgical History HEENT History: Reports: None Cardiovascular History: Reports: None Respiratory History: Reports: None Gastrointestinal History: Reports: None Genitourinary History: Reports: None INSPECTOR PROCESS History: Reports: , Spontaneous Musculoskeletal History: Reports: None Neurological History: Reports: None Psychiatric History: Reports: Anxiety, Depression Endocrine/Metabolic History: Reports: None Insulin Pump Model and Combination Building Inspector: N/A Hematologic History: Reports: None Immunologic History: Reports: None Oncologic (Cancer) History: Reports: None Dermatologic History: Reports: None - Infectious Disease History Infectious Disease History: Reports: None - Past Surgical History Head Surgeries/Procedures: Reports: None GI Surgical History: Reports: Appendectomy Social & Family History - Family History Family Medical History: Noncontributory - Tobacco Use Smoking Status *Q: Current Every Day Smoker Years of Tobacco use: 5 Packs/Tins Daily: 0.5 - Caffeine Use Caffeine Use: Reports: Energy Drinks, Soda Other Caffeine Use: 1/day - Recreational Drug Use Recreational Drug Use: No Review of Systems - Review of Systems Review Of Systems: See Below ED EXAM, GENERAL - Physical Exam Exam: See Below Course - Vital Signs Last Recorded V/S: Last Vital Signs Temp 36.6 C 06/20/19 20:22 Pulse 88 06/20/19 20:22 Resp 18 06/20/19 20:22 BP 121/74 06/20/19 20:22 Pulse Ox 98 06/20/19 20:22 - Orders/Labs/Meds Meds: Medications Discontinued Medications Generic Name Dose Route Start Last Admin Trade Name Freq PRN Reason Stop Dose Admin Ketorolac Tromethamine 30 mg 06/20/19 21:42 06/20/19 21:53 Toradol IM 06/20/19 21:43 30 mg ONETIME ONE Administration Departure - Departure Time of Disposition: 22:27 Disposition: Home, Self-Care 01 Clinical Impression: Right ankle sprain - Discharge Information Referrals: Rossy Moore, FLAT SURFACER [Primary Care Provider] - Forms: ED Department Discharge Sepsis Event Note - Evaluation Sepsis Screening Result: No Definite Risk - Focused Exam Vital Signs: Vital Signs Temp Pulse Resp BP Pulse Ox 06/20/19 20:22 36.6 C 88 18 121/74 98 Date Exam was Performed: 06/20/19 Time Exam was Performed: 22:26
--- NOTE | 2019-06-20 22:20 | CR ---
INDICATION: 5th metatarsal pain, r/o lee fx TECHNIQUE: Right foot 2 views COMPARISON: None. FINDINGS: Bones: Alignment is normal. No fractures or bone lesions. Joint spaces: Unremarkable. Soft tissues: Unremarkable. IMPRESSION: Unremarkable right foot. Dictated by: Adolfo Dejesus MD @ 06/20/2019 22:17:46 (Electronically Signed)
[2019-06-21 00:48] VITALS: BP 132/86; PULSE 92
== END 2019-06-20 23:06 | disposition home or self-care (01) ==
LOC: MW.ED 19:11
DX: S93.401A Sprain of unspecified ligament of right ankle, initial encounter (principal); F17.210 Nicotine dependence, cigarettes, uncomplicated; Z90.49 Acquired absence of other specified parts of digestive tract; Z88.1 Allergy status to other antibiotic agents; Z88.5 Allergy status to narcotic agent; W00.0XXA Fall on same level due to ice and snow, initial encounter
CPT/HCPCS: 73620; 96372; 99283; J1885

== ENCOUNTER 2019-08-15 03:34 | Emergency (ER) | payer BC ==
[2019-08-15 03:46] VITALS: BP 138/90; PULSE 98
[2019-08-15] MEDS ORDERED: Acetaminophen 325 MG Tab PO ONE (03:53)
[2019-08-15] MEDS ORDERED: Hydrocortisone/Neomycin/Polymyxin B Otic Susp 10 ML Bottle EARLF ONE (03:53)
--- NOTE | 2019-08-15 04:00 | EDM.PDOC ---
ED [facility] GENERAL MEDICAL PROBLEM - General Chief Complaint: ENT Problem Stated Complaint: EAR INFECTION Time Seen by Provider: 08/15/19 04:01 Source of Information: Reports: Patient History Limitations: Reports: No Limitations - History of Present Illness INITIAL COMMENTS - FREE TEXT/NARRATIVE: Patient is 24-year-old female no significant past medical history presenting with chief complaint of left ear pain. Patient states the pain is been ongoing for 1 day. Patient states pain radiates to the jaw and the head. Nothing seems to make the pain better or worse. Patient took 800 mg of ibuprofen at 2 AM without any relief. Patient denies any discharge from the ear. Patient does report using Q-tips to clean the ear. Patient has no dental pain. Patient has no trismus. Pmhx: None Pshx: None Family Hx: noncontributory Smoking history? no Etoh use? none Drug use? none Review of systems performed and otherwise negative as per HPI I have reviewed the triage vital signs Const: Well nourished, well developed, appears stated age Eyes: PERRL, no conjunctival injection HENT: Mild swelling to the left external canal, no discharge noted, mild cerumen bilaterally no mastoid erythema or tenderness. NCAT, Neck supple without meningismus. No dental swelling or dental tenderness palpation. CV: RRR, Warm, well-perfused extremities RESP: CTAB, Unlabored respiratory effort GI: soft, non-tender, non-distended, no masses MSK: No gross deformities appreciated Skin: Warm, dry. No rashes Neuro: Alert, speech professor II-XII grossly intact. Sensation and motor function of extremities grossly intact. Psych: Appropriate mood and affect Assessment and plan: Patient is a 22-year-old female presenting with left ear pain. With evidence of possible early otitis externa. Given presence of cerumen, may also be irritation to the canal secondary to direct trauma with Q-tips. No evidence of acute mastoiditis. No evidence of dental pain or abscess. Patient given pain medication and antibiotics in the ER. Patient given return precautions. All questions addressed and answered. Patient agrees with plan. Left Ear Pain Score (Numeric/FACES): 8 - Related Data Allergies Allergy/AdvReac Type Severity Reaction Status Date / Time erythromycin base Allergy Severe Rash Verified 08/15/19 03:45 [Erythromycin Base] azithromycin Allergy Rash Verified 08/15/19 03:45 codeine AdvReac Rash Verified 08/15/19 03:45 Home Meds: Home Meds . [No Known Home Meds] 06/20/19 [History] Past Medical History - Past Health History Medical/Surgical History: Denies Medical/Surgical History HEENT History: Reports: None Cardiovascular History: Reports: None Respiratory History: Reports: None Gastrointestinal History: Reports: None Genitourinary History: Reports: None GUIDE DELEGATE History: Reports: , Spontaneous Musculoskeletal History: Reports: None Neurological History: Reports: None Psychiatric History: Reports: Anxiety, Depression Endocrine/Metabolic History: Reports: None Insulin Pump Model and Core Checker: N/A Hematologic History: Reports: None Immunologic History: Reports: None Oncologic (Cancer) History: Reports: None Dermatologic History: Reports: None - Infectious Disease History Infectious Disease History: Reports: Chicken Pox - Past Surgical History Head Surgeries/Procedures: Reports: None GI Surgical History: Reports: Appendectomy Social & Family History - Family History Family Medical History: Noncontributory - Tobacco Use Smoking Status *Q: Current Every Day Smoker Years of Tobacco use: 5 Packs/Tins Daily: 0.5 - Caffeine Use Caffeine Use: Reports: Energy Drinks, Soda Other Caffeine Use: 1/day - Recreational Drug Use Recreational Drug Use: No ED ROS ENT - Review of Systems Review Of Systems: See Below ED EXAM, ENT - Physical Exam Exam: See Below Course - Vital Signs Last Recorded V/S: Last Vital Signs Temp 36.0 C L 08/15/19 03:35 Pulse 98 08/15/19 03:35 Resp 14 08/15/19 03:35 BP 138/90 08/15/19 03:35 Pulse Ox 98 08/15/19 03:35 - Orders/Labs/Meds Meds: Medications Discontinued Medications Generic Name Dose Route Start Last Admin Trade Name Freq PRN Reason Stop Dose Admin Acetaminophen 650 mg 08/15/19 03:53 Tylenol PO 08/15/19 03:54 NOW ONE Neomycin/Polymyxin/Hydrocortisone 1 ml 08/15/19 03:53 Cortisporin Otic Susp EARLF 08/15/19 03:54 ONETIME ONE Departure - Departure Time of Disposition: 04:01 Disposition: Home, Self-Care 01 Clinical Impression: Otitis externa - Discharge Information Instructions: Ear Drops, Adult Referrals: Rossy Moore EXHIBITOR SALES [Primary Care Provider] - Forms: ED Department Discharge Additional Instructions: The following information is given to patients seen in the emergency department who are being discharged to home. This information is to outline your options for follow-up care. We provide all patients seen in our emergency department with a follow-up referral. The need for follow-up, as well as the timing and circumstances, are variable depending upon the specifics of your emergency department visit. If you don't have a primary care physician on staff, we will provide you with a referral. We always advise you to contact your personal physician following an emergency department visit to inform them of the circumstance of the visit and for follow-up with them and/or the need for any referrals to a consulting specialist. The emergency department will also refer you to a specialist when appropriate. This referral assures that you have the opportunity for follow-up care with a specialist. All of these measure are taken in an effort to provide you with optimal care, which includes your follow-up. Under all circumstances we always encourage you to contact your private physician who remains a resource for coordinating your care. When calling for follow-up care, please make the office aware that this follow-up is from your recent emergency room visit. If for any reason you are refused follow-up, please contact the [facility] Emergency Department at and asked to speak to the emergency department charge nurse. Sepsis Event Note - Evaluation Sepsis Screening Result: No Definite Risk - Focused Exam Vital Signs: Vital Signs Temp Pulse Resp BP Pulse Ox 08/15/19 03:35 36.0 C L 98 14 138/90 98 Date Exam was Performed: 08/15/19 Time Exam was Performed: 04:00
== END 2019-08-15 04:11 | disposition home or self-care (01) ==
LOC: MW.ED 03:34
DX: H60.92 Unspecified otitis externa, left ear (principal); Z88.1 Allergy status to other antibiotic agents; Z88.5 Allergy status to narcotic agent
CPT/HCPCS: 99282; A9270

== ENCOUNTER 2020-12-11 18:56 | Emergency (ER) | payer BC ==
[2020-12-11 20:40] VITALS: BP 135/74; PULSE 69
[2020-12-11] MEDS ORDERED: Sodium Chloride 0.9% 10 ML Syringe FLUSH PRN (21:41)
[2020-12-11] MEDS ORDERED: Sodium Chloride 0.9% 2.5 ML Syringe FLUSH PRN (21:41)
[2020-12-11] MEDS ORDERED: Sodium Chloride 0.9% 1,000 ML IV ONE (21:41)
[2020-12-11] MEDS ORDERED: Pantoprazole 40 MG in Sodium Chloride 0.9% 10 ML IV ONE (21:41)
[2020-12-11 22:17] LABS: BLOOD UREA NITROGEN,BUN 9 mg/dL (7.0-18.0); CARBON DIOXIDE,CO2 27.2 mmol/L (21.0-32.0); CHLORIDE,CL 102 mmol/L (98-107); GLUCOSE RANDOM 80 mg/dL (74-106); LIPASE 58 U/L (73-393); POTASSIUM,K 4.4 mmol/L (3.5-5.1); SODIUM,NA 138 mmol/L (136-145)
--- NOTE | 2020-12-11 22:35 | CT ---
INDICATION: Diffuse abdominal pain TECHNIQUE: CT Abdomen and pelvis without i.v. contrast. Coronal and sagittal reformats were obtained. COMPARISON: 06/18/2020 FINDINGS: Lower chest: Unremarkable. Liver: Unremarkable. Spleen: Unremarkable. Pancreas: Unremarkable. Gallbladder: Unremarkable. Kidney: Unremarkable. No kidney or ureteral stones or obstruction seen. Adrenal: Unremarkable. Bowel: Unremarkable. Previous appendectomy noted with no significant appendiceal stump identified. Vascular: Unremarkable. Lymph: Unremarkable. Peritoneum: Unremarkable. No pneumoperitoneum is seen. No significant ascites is noted. Pelvis: Unremarkable. Soft tissue: Unremarkable. Bone: Unremarkable for age. IMPRESSION: 1. Unremarkable with no CT correlate for the patient`s symptoms seen. Dictated by Arslan Art MD @ 12/11/2020 10:34:28 PM Please note that all CT scans at this facility use dose modulation, iterative reconstruction, and/or weight-based dosing when appropriate to reduce radiation dose to as low as reasonably achievable. Dictated by: Arslan Art MD @ 12/11/2020 22:34:35 (Electronically Signed)
--- NOTE | 2020-12-11 23:06 | EDM.PDOC ---
ED HPI GENERAL MEDICAL PROBLEM - General Chief Complaint: Abdominal Pain Stated Complaint: PAIN ON BOTH SIDES Time Seen by Provider: 12/11/20 20:48 - History of Present Illness INITIAL COMMENTS - FREE TEXT/NARRATIVE: HISTORY AND PHYSICAL: History of present illness: This is a 25-year-old female is status post appendectomy presents ER today complaining of left upper quadrant abdominal pain. Patient has any recent fevers, shakes, chills, nausea, vomiting, diarrhea, dysuria, frequency, urgency. Patient reports tolerating p.o. solids and liquids well. Patient reports pain is constant. Patient has any melena or bright red blood per rectum. Patient has any recent trauma. Review of systems: As per history of present illness and below otherwise all systems reviewed and negative. Past medical history: As per history of present illness and as reviewed below otherwise noncontributory. Surgical history: As per history of present illness and as reviewed below otherwise noncontributory. Social history: No reported history of drug abuse. Family history: As per history of present illness and as reviewed below otherwise noncontributory. Physical exam: This patient was seen and evaluated during the 2019 SARS-CoV-2 novel coronavirus pandemic period. Community viral transmission is ongoing at time of this encounter and the emergency department is operating under pandemic response procedures. Constitutional: Patient is oriented to person, place, and time. Appears well- developed and well-nourished. No distress. HEENT: Moist mucous membranes Head: Normocephalic and atraumatic Eyes: Right eye exhibits no discharge. Left eye exhibits no discharge. No scleral icterus Neck: Normal range of motion. No tracheal deviation present. Cardiovascular: Normal rate and regular rhythm. Pulmonary: Effort normal, no respiratory distress. Abd: Soft, nondistended, no rebound/guarding, no psoas or obturator signs, no tenderness at Mcberney's point, no Franklin's sign. Pt does not present with an exam that would be consistent with an acute surgical abdomen at this time. Tenderness palpation left upper quadrant. Musculoskeletal: Normal range of motion Neurologic: Alert and oriented to person, place and time. Skin: [place], warm and dry. Psychiatric: Normal mood and affect. Behavior is normal. Judgment and thought content normal. Nursing note and vital signs have been reviewed Diagnostics: CBC, CMP, lipase, urinalysis all normal. CT abdomen pelvis normal Therapeutics: [] Assessment and plan: 25-year-old female who presents ER today complaining of abdominal pain of unclear etiology. Pain is greatest in the left upper quadrant. Pain may be secondary to gastritis versus enteritis. Patient will get started on Prilosec and instructed to follow-up with her doctor for further GI evaluation. Reassessment at the time of disposition demonstrates that the patient is in no acute distress. The patient has remained stable throughout the entire ED visit and is without objective evidence for acute process requiring urgent intervention or hospitalization. The patient is stable for discharge, counseling is provided as documented above, discussed symptomatic treatment and specific conditions for return. I have spoken with the patient/caregiver and discussed todays findings, in addition to providing specific details for the plan of care. Questions are answered and there is agreement with the plan. Definitive disposition and diagnosis as appropriate pending reevaluation and review of above. abdomen Pain Score (Numeric/FACES): 7 - Related Data Allergies Allergy/AdvReac Type Severity Reaction Status Date / Time erythromycin base Allergy Severe Rash Verified 12/11/20 20:37 [Erythromycin Base] azithromycin Allergy Rash Verified 12/11/20 20:37 codeine AdvReac Rash Verified 12/11/20 20:37 Home Meds: Home Meds Omeprazole Magnesium [Prilosec Otc] 20 mg PO BID #30 tablet. 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 Musculoskeletal History: Reports: None Neurological History: Reports: None Psychiatric History: Reports: Anxiety, Depression Endocrine/Metabolic History: Reports: None Insulin Pump Model and Public Area Supervisor: N/A Hematologic History: Reports: None Immunologic History: Reports: None Oncologic (Cancer) History: Reports: None Dermatologic History: Reports: None - Infectious Disease History Infectious Disease History: Reports: Chicken Pox - Past Surgical History Head Surgeries/Procedures: Reports: None GI Surgical History: Reports: Appendectomy Social & Family History - Family History Family Medical History: No Pertinent Family History - Tobacco Use Tobacco Use Status *Q: Current Every Day Tobacco User Years of Tobacco use: 6 Packs/Tins Daily: 0.5 - Caffeine Use Caffeine Use: Reports: Energy Drinks, Soda Other Caffeine Use: 1/day - Recreational Drug Use Recreational Drug Use: No ED ROS GENERAL - Review of Systems Review Of Systems: See Below ED EXAM, GENERAL - Physical Exam Exam: See Below Course - Vital Signs Last Recorded V/S: Last Vital Signs Temp 97.0 F 12/11/20 20:37 Pulse 69 12/11/20 20:37 Resp 18 12/11/20 20:37 BP 135/74 12/11/20 20:37 Pulse Ox 98 12/11/20 20:37 - Orders/Labs/Meds Orders: Active Orders 24 hr Category Date Time Status Sodium Chloride 0.9% [Saline Flush] Med 12/11/20 21:41 Active 10 ml FLUSH ASDIRECTED PRN Sodium Chloride 0.9% [Saline Flush] Med 12/11/20 21:41 Active 2.5 ml FLUSH ASDIRECTED PRN Saline Lock Insert [OM.PC] Stat Oth 12/11/20 21:41 Ordered Medication Orders Sodium Chloride (Sodium Chloride 0.9% 10 Ml Syringe) 10 ml FLUSH ASDIRECTED PRN PRN Reason: Keep Vein Open Sodium Chloride (Sodium Chloride 0.9% 2.5 Ml Syringe) 2.5 ml FLUSH ASDIRECTED PRN PRN Reason: Keep Vein Open Labs: Laboratory Tests 12/11/20 12/11/20 12/11/20 Range/Units 21:00 21:00 21:51 WBC 11.32 H (4.0-11.0) K/uL RBC 4.72 (4.30-5.90) M/uL Hgb 13.9 (12.0-16.0) g/dL Hct 40.3 (36.0-46.0) % MCV 85.4 (80.0-98.0) fL MCH 29.4 (27.0-32.0) pg MCHC 34.5 (31.0-37.0) g/dL RDW Std Deviation 39.0 (28.0-62.0) fl RDW Coeff of Wendy 12 (11.0-15.0) % Plt Count 261 (150-400) K/uL MPV 10.50 (7.40-12.00) fL Neut % (Auto) 61.0 (48.0-80.0) % Lymph % (Auto) 30.9 (16.0-40.0) % Power % (Auto) 7.6 (0.0-15.0) % Eos % (Auto) 0.3 (0.0-7.0) % Baso % (Auto) 0.2 (0.0-1.5) % Neut # (Auto) 6.9 H (1.4-5.7) K/uL Lymph # (Auto) 3.5 H (0.6-2.4) K/uL Power # (Auto) 0.9 H (0.0-0.8) K/uL Eos # (Auto) 0.0 (0.0-0.7) K/uL Baso # (Auto) 0.0 (0.0-0.1) K/uL Nucleated RBC % 0.0 /100WBC Nucleated RBCs # 0 K/uL Sodium (136-145) mmol/L Potassium (3.5-5.1) mmol/L Chloride (98-107) mmol/L Carbon Dioxide (21.0-32.0) mmol/L BUN (7.0-18.0) mg/dL Creatinine (0.6-1.0) mg/dL Est Cr Clr Drug Dosing mL/min Estimated GFR (MDRD) ml/min Glucose (74-106) mg/dL Calcium (8.5-10.1) mg/dL Total Bilirubin (0.2-1.0) mg/dL AST (15-37) IU/L ALT (14-63) IU/L Alkaline Phosphatase (46-116) U/L Total Protein (6.4-8.2) g/dL Albumin (3.4-5.0) g/dL Globulin (2.6-4.0) g/dL Albumin/Globulin Ratio (0.9-1.6) Lipase (73-393) U/L Urine Color YELLOW Urine Appearance CLEAR Urine pH 6.0 (5.0-8.0) Ur Specific [place] 1.025 (1.001-1.035) Urine Protein NEGATIVE (NEGATIVE) mg/dL Urine Glucose (UA) NEGATIVE (NEGATIVE) mg/dL Urine Ketones NEGATIVE (NEGATIVE) mg/dL Urine Occult Blood NEGATIVE (NEGATIVE) Urine Nitrite NEGATIVE (NEGATIVE) Urine Bilirubin NEGATIVE (NEGATIVE) Urine Urobilinogen 0.2 (<2.0) EU/dL Ur Leukocyte Esterase NEGATIVE (NEGATIVE) Urine HCG, Qual NEGATIVE (NEGATIVE) 12/11/20 Range/Units 21:51 WBC (4.0-11.0) K/uL RBC (4.30-5.90) M/uL Hgb (12.0-16.0) g/dL Hct (36.0-46.0) % MCV (80.0-98.0) fL MCH (27.0-32.0) pg MCHC (31.0-37.0) g/dL RDW Std Deviation (28.0-62.0) fl RDW Coeff of Wendy (11.0-15.0) % Plt Count (150-400) K/uL MPV (7.40-12.00) fL Neut % (Auto) (48.0-80.0) % Lymph % (Auto) (16.0-40.0) % Power % (Auto) (0.0-15.0) % Eos % (Auto) (0.0-7.0) % Baso % (Auto) (0.0-1.5) % Neut # (Auto) (1.4-5.7) K/uL Lymph # (Auto) (0.6-2.4) K/uL Power # (Auto) (0.0-0.8) K/uL Eos # (Auto) (0.0-0.7) K/uL Baso # (Auto) (0.0-0.1) K/uL Nucleated RBC % /100WBC Nucleated RBCs # K/uL Sodium 138 (136-145) mmol/L Potassium 4.4 (3.5-5.1) mmol/L Chloride 102 (98-107) mmol/L Carbon Dioxide 27.2 (21.0-32.0) mmol/L BUN 9 (7.0-18.0) mg/dL Creatinine 0.7 (0.6-1.0) mg/dL Est Cr Clr Drug Dosing 107.93 mL/min Estimated GFR (MDRD) > 60.0 ml/min Glucose 80 (74-106) mg/dL Calcium 8.6 (8.5-10.1) mg/dL Total Bilirubin 0.3 (0.2-1.0) mg/dL AST 30 (15-37) IU/L ALT 60 (14-63) IU/L Alkaline Phosphatase 57 (46-116) U/L Total Protein 7.1 (6.4-8.2) g/dL Albumin 3.7 (3.4-5.0) g/dL Globulin 3.4 (2.6-4.0) g/dL Albumin/Globulin Ratio 1.1 (0.9-1.6) Lipase 58 L (73-393) U/L Urine Color Urine Appearance Urine pH (5.0-8.0) Ur Specific [place] (1.001-1.035) Urine Protein (NEGATIVE) mg/dL Urine Glucose (UA) (NEGATIVE) mg/dL Urine Ketones (NEGATIVE) mg/dL Urine Occult Blood (NEGATIVE) Urine Nitrite (NEGATIVE) Urine Bilirubin (NEGATIVE) Urine Urobilinogen (<2.0) EU/dL Ur Leukocyte Esterase (NEGATIVE) Urine HCG, Qual (NEGATIVE) Meds: Medications Generic Name Dose Route Start Last Admin Trade Name Freq PRN Reason Stop Dose Admin Sodium Chloride 10 ml 12/11/20 21:41 Sodium Chloride 0.9% 10 Ml Syringe FLUSH ASDIRECTED PRN Keep Vein Open Sodium Chloride 2.5 ml 12/11/20 21:41 Sodium Chloride 0.9% 2.5 Ml Syringe FLUSH ASDIRECTED PRN Keep Vein Open Discontinued Medications Generic Name Dose Route Start Last Admin Trade Name Freq PRN Reason Stop Dose Admin Sodium Chloride 1,000 mls @ 999 mls/hr 12/11/20 21:41 12/11/20 21:51 Normal Saline IV 12/11/20 22:41 999 mls/hr .Bolus ONE Administration Pantoprazole Sodium 40 mg/ 10 mls @ 300 mls/hr 12/11/20 21:41 12/11/20 21:53 Sodium Chloride IV 12/11/20 21:42 300 mls/hr NOW ONE Administration Departure - Departure Time of Disposition: 23:04 Disposition: Home, Self-Care 01 Condition: Good Clinical Impression: Abdominal pain, Gastritis - Discharge Information Instructions: Gastritis, Adult, Abdominal Pain, Adult Referrals: Rossy Moore, ACID FILLER [Primary Care Provider] - Additional Instructions: You were seen and evaluated in the ER today secondary to pain in your stomach. Your blood tests were all normal. The CT scan of your abdomen pelvis not reveal any abnormalities. Please make an appointment see your family doctor in the next 1 to 2 days for reevaluation. You will be given a prescription for Prilosec OTC to take twice a day for the next 2 weeks. The following information is given to patients seen in the emergency department who are being discharged to home. This information is to outline your options for follow-up care. We provide all patients seen in our emergency department with a follow-up referral. The need for follow-up, as well as the timing and circumstances, are variable depending upon the specifics of your emergency department visit. If you don't have a primary care physician on staff, we will provide you with a referral. We always advise you to contact your personal physician following an emergency department visit to inform them of the circumstance of the visit and for follow-up with them and/or the need for any referrals to a consulting specialist. The emergency department will also refer you to a specialist when appropriate. This referral assures that you have the opportunity for follow-up care with a specialist. All of these measure are taken in an effort to provide you with optimal care, which includes your follow-up. Under all circumstances we always encourage you to contact your private physician who remains a resource for coordinating your care. When calling for follow-up care, please make the office aware that this follow-up is from your recent emergency room visit. If for any reason you are refused follow-up, please contact the [facility] Emergency Department at and asked to speak to the emergency department charge nurse. [facility] - Primary Care [address] [place] [id number] [facility] [address] [place] [id number] Sepsis Event Note (ED) - Evaluation Sepsis Screening Result: No Definite Risk - Focused Exam Vital Signs: Vital Signs Temp Pulse Resp BP Pulse Ox 12/11/20 20:37 97.0 F 69 18 135/74 98 - My Orders Last 24 Hours: My Active Orders 12/11/20 21:41 Sodium Chloride 0.9% [Saline Flush] 10 ml FLUSH ASDIRECTED PRN Sodium Chloride 0.9% [Saline Flush] 2.5 ml FLUSH ASDIRECTED PRN Saline Lock Insert [OM.PC] Stat - Assessment/Plan Last 24 Hours: My Active Orders 12/11/20 21:41 Sodium Chloride 0.9% [Saline Flush] 10 ml FLUSH ASDIRECTED PRN Sodium Chloride 0.9% [Saline Flush] 2.5 ml FLUSH ASDIRECTED PRN Saline Lock Insert [OM.PC] Stat
== END 2020-12-11 23:15 | disposition home or self-care (01) ==
LOC: MW.ED 18:56
DX: K29.70 Gastritis, unspecified, without bleeding (principal); Z88.1 Allergy status to other antibiotic agents; Z88.5 Allergy status to narcotic agent; Z79.899 Other long term (current) drug therapy; Z72.0 Tobacco use
CPT/HCPCS: 36415; 74176; 80053; 81003; 81025; 83690; 85025; 96374; 99284; C9113; J7030

== ENCOUNTER 2021-03-16 19:12 | Emergency (ER) | payer BC ==
[2021-03-16] MEDS ORDERED: Ibuprofen 800 MG Tab PO ONE (20:05)
--- NOTE | 2021-03-16 20:10 | EDM.PDOC ---
ED HPI GENERAL MEDICAL PROBLEM - General Chief Complaint: Lower Extremity Injury/Pain Stated Complaint: KNEE INJURY Time Seen by Provider: 03/16/21 19:49 Source of Information: Reports: Patient History Limitations: Reports: No Limitations - History of Present Illness INITIAL COMMENTS - FREE TEXT/NARRATIVE: HISTORY AND PHYSICAL: History of present illness: Patient is a 25-year-old female who presents to the emergency room with complaints of left knee pain. She states she was bending down onto her knee while at work and when she went to stand up she felt a "pop". 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 She was wrapped in [place] and brought to the emergency room. Patient denies any fever, chills, headache, change in vision, syncope or near syncope. Denies any chest pain, back pain, shortness of breath or cough. Denies any GI or symptoms. No recent travel or sick contacts. Review of systems: As per history of present illness and below otherwise all systems reviewed and negative. Past medical history: As per history of present illness and as reviewed below otherwise noncontributory. Surgical history: As per history of present illness and as reviewed below otherwise noncontributory. Social history: See social history for further information Family history: As per history of present illness and as reviewed below otherwise noncontributory. Physical exam: General: Well developed and well nourished 25-year-old female. Alert and orientated x 3. Nontoxic in appearance and in no acute distress. Vital signs are stable and have been reviewed by me. Nursing notes were reviewed. HEENT: Atraumatic, normocephalic, pupils equal and reactive bilaterally, negative for conjunctival pallor or scleral icterus, mucous membranes moist, trachea midline. No drooling or trismus noted. No meningeal signs. No hot potato voice noted. Lungs: Clear to auscultation bilaterally. No wheezes, rales, or rhonchi. Chest nontender. Normal work of breathing, no accessory muscles used. Heart: S1S2, regular rate and rhythm without overt murmur, gallops, or rubs. No JVD. No peripheral edema Abdomen: Soft, nondistended, nontender. Skin: Intact, warm, dry. No lesions or rashes noted. Hematologic: No petechiae or purpra. Mucosa appropriate color and normal nail bed color and refill. Extremities: Atraumatic, pain with flexion and extension of the left knee although she moves all extremities per self without difficulty or deficits, negative for cords or calf pain. Neurovascular unremarkable. Neuro: Awake, alert, oriented. Cranial nerves II through XII unremarkable. Cerebellum unremarkable. Motor and sensory unremarkable throughout. Exam nonfocal. Psychiatric: Mood and affect are appropriate. Normal thought process. Answering questions appropriately. Please note that the patient was seen and evaluated during the 2019 SARS-CoV-2 novel coronavirus pandemic period. Community viral transmission is ongoing at time of this encounter and the emergency department is operating under pandemic response procedures. Medical Decision Making: Patient is a 25-year-old female who presents to the emergency room with complaints of left knee pain after bending down and then standing back up and hearing a "pop". She states over the last 10+ years she has had many problems with frequent patellar dislocations. Typically it will move in and out of place briefly. She states she has increased pain with any type of palpation of the anterior knee and flexion and extension. X-ray shows patella dereck with mild soft tissue swelling in the infrapatellar region. Moderate suprapatellar joint effusion. Moderate lateral patellar tilt and moderate lateral patellar tracking without primary osteoarthritis of the patellofemoral articulation. No sign of any additional abnormality in the knee. Patient has strong pedal and pretibial pulses. Cap refill less than 2 seconds. She is able to move her toes and although it causes pain she can flex and extend at the knee. Patient placed in a knee immobilizer and crutches to be nonweightbearing. I have talked with the patient about today's findings, in addition to providing specific details for plan of care. Reassessment at the time of disposition demonstrates that the patient is in no acute distress. The patient is stable for discharge, counseling was provided and we discussed in great detail signs and symptoms that would prompt them to return to the Emergency Department. Medication, follow up and supportive care measures were reviewed and discussed. Voices understanding and is agreeable to plan of care. Denies any further questions or concerns at this time. Diagnostics: Knee x-ray Therapeutics: Ibuprofen Prescription: Tramadol (#15) Impression: Left knee injury Plan: 1. You were evaluated today on an emergent basis. Your x-ray shows moderate joint effusion and possible ligament injury. As we discussed you should follow- up with either orthopedics or your primary care provider to have further imaging and reevaluation. Please call Wednesday to set up this appointment. 2. Rest, ice, elevate the extremity as able. Wear the knee immobilizer and use the crutches to be nonweightbearing. 3. You can alternate Tylenol and ibuprofen as needed for pain and fever management. 4. If your symptoms should worsen, new symptoms develop or any of the signs and symptoms we discussed should arise please return to the emergency room or call 911 (if needed). Definitive disposition and diagnosis as appropriate pending reevaluation and rev iew of above. - Related Data Allergies Allergy/AdvReac Type Severity Reaction Status Date / Time erythromycin base Allergy Severe Rash Verified 12/11/20 20:37 [Erythromycin Base] azithromycin Allergy Rash Verified 12/11/20 20:37 codeine AdvReac Rash Verified 12/11/20 20:37 Home Meds: Home Meds Omeprazole Magnesium [Prilosec Otc] 20 mg PO BID #30 tablet. 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 Musculoskeletal History: Reports: None Neurological History: Reports: None Psychiatric History: Reports: Anxiety, Depression Endocrine/Metabolic History: Reports: None Insulin Pump Model and Health/Safety Job Titles: N/A Hematologic History: Reports: None Immunologic History: Reports: None Oncologic (Cancer) History: Reports: None Dermatologic History: Reports: None - Infectious Disease History Infectious Disease History: Reports: Chicken Pox - Past Surgical History Head Surgeries/Procedures: Reports: None GI Surgical History: Reports: Appendectomy Social & Family History - Family History Family Medical History: No Pertinent Family History - Caffeine Use Caffeine Use: Reports: Energy Drinks, Soda Other Caffeine Use: 1/day Review of Systems - Review of Systems Review Of Systems: Comprehensive ROS is negative, except as noted in HPI. ED EXAM, GENERAL - Physical Exam Exam: See Below (See dictation) Course - Orders/Labs/Meds Orders: Active Orders 24 hr Category Date Time Status DME for Discharge [COMM] Stat Oth 03/16/21 21:08 Ordered Meds: Medications Discontinued Medications Generic Name Dose Route Start Last Admin Trade Name Maria Eugenia PRN Reason Stop Dose Admin Ibuprofen 800 mg 03/16/21 20:05 03/16/21 20:26 Ibuprofen 800 Mg Tab PO 03/16/21 20:06 800 mg ONETIME ONE Administration Tramadol HCl 50 mg 03/16/21 21:10 Tramadol 50 Mg Tab PO 03/16/21 21:11 ONETIME ONE Departure - Departure Time of Disposition: 21:06 Disposition: Home, Self-Care 01 Clinical Impression: Knee injury Qualifiers: Encounter type: initial encounter Laterality: left Qualified Code(s): S89.92XA - Unspecified injury of left lower leg, initial encounter - Discharge Information Instructions: Knee Sprain, Adult, [id number] Referrals: Rossy Moore, CRISIS THERAPIST [Primary Care Provider] - Forms: ED Department Discharge Additional Instructions: The following information is given to patients seen in the emergency department who are being discharged to home. This information is to outline your options for follow-up care. We provide all patients seen in our emergency department with a follow-up referral. The need for follow-up, as well as the timing and circumstances, are variable depending upon the specifics of your emergency department visit. If you don't have a primary care physician on staff, we will provide you with a referral. We always advise you to contact your personal physician following an emergency department visit to inform them of the circumstance of the visit and for follow-up with them and/or the need for any referrals to a consulting specialist. The emergency department will also refer you to a specialist when appropriate. This referral assures that you have the opportunity for follow-up care with a specialist. All of these measure are taken in an effort to provide you with optimal care, which includes your follow-up. Under all circumstances we always encourage you to contact your private physician who remains a resource for coordinating your care. When calling for follow-up care, please make the office aware that this follow-up is from your recent emergency room visit. If for any reason you are refused follow-up, please contact the [facility] Emergency Department at and asked to speak to the emergency department charge nurse. [facility] Primary Care [address] [place] [address] [place] [address] [facility] [address] [place] [address] Thank you for choosing the [facility] emergency department in [place] for your medical needs today. It was a pleasure caring for you. Today you were seen in the emergency department for knee injury 1. You were evaluated today on an emergent basis. Your x-ray shows moderate joint effusion and possible ligament injury. As we discussed you should follow- up with either orthopedics or your primary care provider to have further imaging and reevaluation. Please call Wednesday to set up this appointment. 2. Rest, ice, elevate the extremity as able. Wear the knee immobilizer and use the crutches to be nonweightbearing. 3. You can alternate Tylenol and ibuprofen as needed for pain and fever management. 4. If your symptoms should worsen, new symptoms develop or any of the signs and symptoms we discussed should arise please return to the emergency room or call 911 (if needed). - My Orders Last 24 Hours: My Active Orders 03/16/21 21:08 DME for Discharge [COMM] Stat - Assessment/Plan Last 24 Hours: My Active Orders 03/16/21 21:08 DME for Discharge [COMM] Stat
--- NOTE | 2021-03-16 20:37 | CR ---
INDICATION: Pain following feeling a pop in the knee. COMPARISON: None available. FINDINGS: The left knee was examined with AP, AP tunnel, lateral, and sunrise for a total of four views. There is no sign of fracture or dislocation. The medial and lateral compartments are normal in height. There is elevation of the patella, with an elevated modified Insall-Salvati ratio of 2.18, above the normal range of 1.2-2.1. This raises the possibility of disruption of the patellar tendon, and there is mild soft tissue swelling in the infrapatellar region. There is moderate lateral patellar tracking and moderate lateral patellar tilt, without zaid dislocation of the patella. There is no sign of any primary osteoarthritis of the patellofemoral joint. There is a moderate suprapatellar joint effusion. No soft tissue abnormality is seen. 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 Moderate suprapatellar joint effusion. Moderate lateral patellar tilt and moderate lateral patellar tracking without primary osteoarthritis of the patellofemoral articulation. No sign of any additional abnormality in the knee. Dictated by Anson Sumner MD @ 03/16/2021 8:36:04 PM (Electronically Signed)
[2021-03-16] MEDS ORDERED: traMADol 50 MG Tab PO ONE (21:10)
[2021-03-16 21:44] VITALS: BP 110/70; PULSE 78
== END 2021-03-16 21:30 | disposition home or self-care (01) ==
LOC: MW.ED 19:12
DX: S89.92XA Unspecified injury of left lower leg, initial encounter (principal); Z79.899 Other long term (current) drug therapy; Z88.1 Allergy status to other antibiotic agents; Z88.5 Allergy status to narcotic agent; X50.0XXA Overexertion from strenuous movement or load, initial encounter; Y99.0 Civilian activity done for income or pay
CPT/HCPCS: 73562; 99283; A9270

== ENCOUNTER 2021-10-09 20:20 | Emergency (ER) | payer BC ==
[2021-10-09] MEDS ORDERED: Ketorolac 60 MG/2 ML SDV IM ONE (20:58)
[2021-10-09] MEDS ORDERED: Acetaminophen/HYDROcodone 325-5 MG Tab PO ONE (21:59)
[2021-10-09 23:47] VITALS: BP 123/67; PULSE 77
== END 2021-10-09 22:54 | disposition home or self-care (01) ==
LOC: MW.ED 20:20
DX: M25.561 Pain in right knee (principal); M25.562 Pain in left knee; Z88.1 Allergy status to other antibiotic agents; Z88.5 Allergy status to narcotic agent
CPT/HCPCS: 73562; 96372; 99283; A9270; J1885

== ENCOUNTER 2021-10-12 00:21 | Emergency (ER) | payer BC ==
[2021-10-12] MEDS ORDERED: Ondansetron 4 MG Tab.DIS PO ONE (01:34)
[2021-10-12] MEDS ORDERED: Morphine 4 MG/ML VIAL IM ONE (01:34)
[2021-10-12] MEDS ORDERED: Lidocaine 1% 5 ML VIAL INJECT ONE (02:13)
[2021-10-12 03:17] VITALS: BP 132/72; PULSE 98
== END 2021-10-12 03:17 | disposition home or self-care (01) ==
LOC: MW.ED 00:21
DX: N75.0 Cyst of Bartholin's gland (principal); Z88.8 Allergy status to other drugs, medicaments and biological substances
CPT/HCPCS: 96374; 99282; A9270; J2270; 56420; 99283

== ENCOUNTER 2022-05-26 06:19 | Emergency (ER) | payer BC ==
[2022-05-26] MEDS ORDERED: Ketorolac 30 MG/ML SDV IVPUSH ONE (06:36)
[2022-05-26] MEDS ORDERED: Lactated Ringers 1,000 ML IV STA (06:36)
[2022-05-26] MEDS ORDERED: Ondansetron 4 MG/2 ML SDV IVPUSH ONE (06:36)
[2022-05-26 07:18] LABS: CARBON DIOXIDE,CO2 28.4 mmol/L (21.0-32.0); POTASSIUM,K 4.2 mmol/L (3.5-5.1)
[2022-05-26 08:50] VITALS: BP 116/75; PULSE 72
== END 2022-05-26 08:49 | disposition home or self-care (01) ==
LOC: MW.ED 06:19
DX: R10.32 Left lower quadrant pain (principal); R10.31 Right lower quadrant pain; R11.0 Nausea; R19.7 Diarrhea, unspecified; Z88.1 Allergy status to other antibiotic agents; Z88.5 Allergy status to narcotic agent
CPT/HCPCS: 36415; 80053; 81001; 81025; 83690; 85025; 87086; 96361; 96374; 96375; 99284; J1885; J2405; J7120

== ENCOUNTER 2023-03-06 21:24 | Emergency (ER) | payer BC ==
[2023-03-06] MEDS ORDERED: Ibuprofen 600 MG Tab PO ONE (22:51)
[2023-03-06 23:32] VITALS: BP 117/70; PULSE 68
== END 2023-03-06 23:05 | disposition home or self-care (01) ==
LOC: MW.ED 21:24
DX: S93.401A Sprain of unspecified ligament of right ankle, initial encounter (principal); Z90.49 Acquired absence of other specified parts of digestive tract; Z88.1 Allergy status to other antibiotic agents; Z88.5 Allergy status to narcotic agent; X50.1XXA Overexertion from prolonged static or awkward postures, initial encounter
CPT/HCPCS: 73590; 73610; 99283; A9270